=== PATIENT | female | born 1995 | race Caucasian/White ===

== ENCOUNTER 2020-07-09 18:06 | Emergency (ER) | payer MEDICAID ==
[2020-07-09 18:13] VITALS: BP 153/97; PULSE 100; RESP 18; TEMP 98.5
[2020-07-09] MEDS ORDERED: SODIUM CHLORIDE 0.9% 2,000 ML IV STA (18:45)
[2020-07-09] MEDS ORDERED: METOCLOPRAMIDE 5 MG/ML 2 ML VIAL IVP STA (18:45)
[2020-07-09] MEDS ORDERED: diphenhydrAMINE 50 MG/ML 1 ML VIAL IVP STA (18:45)
[2020-07-09 19:37] LABS: Basophils % (A) 0 %; Eosinophils # (A) 0.1 k/uL (0-0.7); Eosinophils % (A) 1 %; HGB 13.5 gm/dL (11.4-16.0); Lymphocytes # (A) 1.8 k/uL (1.0-4.8); Lymphocytes % (A) 16 %; MCH 30.6 pg (25.0-35.0); MCHC 35.5 g/dL (31.0-37.0); MCV 86.2 fL (80.0-100.0); Mean Platelet Volume 7.1; Monocytes # (A) 0.3 k/uL (0-1.0); Monocytes % (A) 3 %; Neutrophils # (A) 8.8 k/uL (1.3-7.7); Neutrophils % (A) 79 %; Platelet Count 260 k/uL (150-450); RBC 4.41 m/uL (3.80-5.40); RDW 12.1 % (11.5-15.5); WBC 11.1 k/uL (3.8-10.6)
[2020-07-09 19:40] LABS: Appearance,Urine Cloudy (Clear); Bacteria,Urine Few /hpf; Bilirubin,Urine Negative (Negative); Blood,Urine Small (Negative); Color,Urine Yellow; Glucose,Urine (UA) Negative (Negative); Hyaline Casts,Urine 1 /lpf (0-2); Ketones,Urine 4+ (Negative); Leukocyte Esterase,Urine Small (Negative); Mucus,Urine Moderate /hpf; Nitrite,Urine Negative (Negative); PH, Urine 5.5 (5.0-8.0); Protein,Urine Trace (Negative); RBC,Urine 1 /hpf (0-5); Specific Gravity,Urine 1.026 (1.001-1.035); Squamous Epithelial Cell,Urine 5 /hpf (0-4); WBC,Urine 4 /hpf (0-5)
--- NOTE | 2020-07-09 19:40 | ED ---
Nausea/Vomiting/Diarrhea HPI - General Chief complaint: Nausea/Vomiting/Diarrhea Stated complaint: 9 wks preg/vomiting Time Seen by Provider: 07/09/20 18:35 Source: patient, RN notes reviewed, old records reviewed Mode of arrival: ambulatory Limitations: no limitations - History of Present Illness Initial comments: 22-year-old female female with first at 9 weeks last menstrual period she presents today for nausea and vomiting for the past 3 weeks but significantly worse over the past 24 hours. She reports she is unable to tolerate fluids at this time. Patient states that she has not had any ultrasounds or testing on this . His complaint is some minor lower abdominal cramping. She denies any abnormal vaginal bleeding or discharge. - Related Data Previous Rx's Medication Instructions Recorded Cephalexin [Keflex] 500 mg PO Q8HR #12 cap 07/09/20 Metoclopramide [Reglan] 10 mg PO ACHS #15 tab 07/09/20 Allergies Allergy/AdvReac Type Severity Reaction Status Date / Time No Known Allergies Allergy Verified 11/08/19 10:09 Review of Systems ROS Statement: Those systems with pertinent positive or pertinent negative responses have been documented in the HPI. ROS Other: All systems not noted in ROS Statement are negative. Past Medical History Past Medical History: No Reported History History of Any Multi-Drug Resistant Organisms: None Reported Past Surgical History: No Surgical Hx Reported Past Psychological History: No Psychological Hx Reported Smoking Status: Never smoker Past Alcohol Use History: None Reported Past Drug Use History: None Reported General Exam - General Exam Comments Initial Comments: Pleasant 24 yearold female, no distress. Limitations: no limitations General appearance: alert, in no apparent distress Head exam: Present: atraumatic, normocephalic, normal inspection Eye exam: Present: normal appearance, PERRL, EOMI. Absent: scleral icterus, conjunctival injection, periorbital swelling ENT exam: Present: normal exam, mucous membranes moist Neck exam: Present: normal inspection. Absent: tenderness, meningismus, lymphadenopathy Respiratory exam: Present: normal lung sounds bilaterally. Absent: respiratory distress, wheezes, rales, rhonchi, stridor Cardiovascular Exam: Present: regular rate, normal rhythm, normal heart sounds. Absent: systolic murmur, diastolic murmur, rubs, gallop, clicks GI/Abdominal exam: Present: soft, normal bowel sounds. Absent: distended, tenderness, guarding, rebound, rigid Extremities exam: Present: normal inspection, full ROM, normal capillary refill. Absent: tenderness, pedal edema, joint swelling, calf tenderness Back exam: Present: normal inspection Neurological exam: Present: alert, oriented X3, CN II-XII intact Course Vital Signs 07/09/20 18:10 Temperature 98.5 F Pulse Rate 100 Respiratory 18 Rate Blood Pressure 153/97 O2 Sat by Pulse 100 Oximetry Medical Decision Making - Medical Decision Making 24 year old female, 9 weeks , . She has nausea and vomiting for the past 3 weeks, worse in 24 hours. Pt has ketones in urine, given 2L bolus. Pt has bacteruria, and will be placed on keflex. Pt has upcoming appt with Dr. Concepcion. Pt will be Discharged with reglan and discussedreturn parameters. - Lab Data Result diagrams: 07/09/20 19:28 07/09/20 19:28 Lab Results 07/09/20 07/09/20 07/09/20 Range/Units 19:28 19:28 19:28 WBC 11.1 H (3.8-10.6) k/uL RBC 4.41 (3.80-5.40) m/uL Hgb 13.5 (11.4-16.0) gm/dL Hct 38.0 (34.0-46.0) % MCV 86.2 (80.0-100.0) fL MCH 30.6 (25.0-35.0) pg MCHC 35.5 (31.0-37.0) g/dL RDW 12.1 (11.5-15.5) % Plt Count 260 (150-450) k/uL Neutrophils % 79 % Lymphocytes % 16 % Monocytes % 3 % Eosinophils % 1 % Basophils % 0 % Neutrophils # 8.8 H (1.3-7.7) k/uL Lymphocytes # 1.8 (1.0-4.8) k/uL Monocytes # 0.3 (0-1.0) k/uL Eosinophils # 0.1 (0-0.7) k/uL Basophils # 0.0 (0-0.2) k/uL Sodium 134 L (137-145) mmol/L Potassium 4.1 (3.5-5.1) mmol/L Chloride 105 (98-107) mmol/L Carbon Dioxide 19 L (22-30) mmol/L Anion Gap 10 mmol/L BUN 7 (7-17) mg/dL Creatinine 0.63 (0.52-1.04) mg/dL Est GFR (CKD-EPI)AfAm >90 (>60 ml/min/1.73 sqM) Est GFR (CKD-EPI)NonAf >90 (>60 ml/min/1.73 sqM) Glucose 86 (74-99) mg/dL Calcium 9.4 (8.4-10.2) mg/dL Total Bilirubin 0.6 (0.2-1.3) mg/dL AST 28 (14-36) U/L ALT 59 H (4-34) U/L Alkaline Phosphatase 62 (38-126) U/L Total Protein 7.2 (6.3-8.2) g/dL Albumin 4.3 (3.5-5.0) g/dL Urine Color Yellow Urine Appearance Cloudy H (Clear) Urine pH 5.5 (5.0-8.0) Ur Specific [place] 1.026 (1.001-1.035) Urine Protein Trace H (Negative) Urine Glucose (UA) Negative (Negative) Urine Ketones 4+ H (Negative) Urine Blood Small H (Negative) Urine Nitrite Negative (Negative) Urine Bilirubin Negative (Negative) Urine Urobilinogen 2.0 (<2.0) mg/dL Ur Leukocyte Esterase Small H (Negative) Urine RBC 1 (0-5) /hpf Urine WBC 4 (0-5) /hpf Ur Squamous Epith Cells 5 H (0-4) /hpf Urine Bacteria Few H (None) /hpf Hyaline Casts 1 (0-2) /lpf Urine Mucus Moderate H (None) /hpf - Radiology Data Radiology results: report reviewed Interpreted by me: US shows viable IUP measuring 9 weeks. Disposition Clinical Impression: Nausea & vomiting, 9 weeks gestation of , Asymptomatic bacteriuria Disposition: HOME SELF-CARE Condition: Good Instructions (If sedation given, give patient instructions): Nausea and Vomiting in (ED) Additional Instructions: advised follow-up with your CLINICAL TRIAL ASSOCIATE. Rest, increase fluid intake. Patient is to take medication as prescribed. Prescriptions: Cephalexin [Keflex] 500 mg PO Q8HR #12 cap Metoclopramide [Reglan] 10 mg PO ACHS #15 tab Is patient prescribed a controlled substance at d/c from ED?: No Referrals: Josefina Madrid MD [Primary Care Provider] - 1-2 days Time of Disposition: 20:41
[2020-07-09 19:46] LABS: ALT 59 U/L (4-34); AST 28 U/L (14-36); African American GFR (CKD) >90 (>60 ml/min/1.73 sqM); Albumin 4.3 g/dL (3.5-5.0); Alkaline Phosphatase 62 U/L (38-126); Anion Gap 10 mmol/L; Blood Urea Nitrogen 7 mg/dL (7-17); Calcium 9.4 mg/dL (8.4-10.2); Carbon Dioxide 19 mmol/L (22-30); Chloride 105 mmol/L (98-107); Glucose 86 mg/dL (74-99); Non-African American GFR(CKD) >90 (>60 ml/min/1.73 sqM); Potassium 4.1 mmol/L (3.5-5.1); Sodium 134 mmol/L (137-145); Total Bilirubin 0.6 mg/dL (0.2-1.3); Total Protein 7.2 g/dL (6.3-8.2)
--- NOTE | 2020-07-09 20:14 | US ---
EXAMINATION TYPE: Transabdominal DATE OF EXAM: 07/09/2020 7:59 PM COMPARISON: NONE CLINICAL HISTORY: confirm . Abdominal/pelvic pain x 3 weeks, vomiting. . EXAM PERFORMED: Transabdominal (TA) EXAM MEASUREMENTS: GESTATIONAL AGE / DATING Physician Established: Not yet established Dates by LMP: (8 weeks/5 days) EDC: 02/13/2021 Dates by First Scan: This is first scan Dates by Current Scan for: ( 9 weeks/0 days) EDC: 02/11/2021 MATERNAL ANATOMY Uterus: 9.8 x 6.9 x 5.8 cm. Anteverted. As mentioned below, hypoechoic area seen adjacent and to the left of the gestational sac measurin.9 x 1.1 x 1.8 cm. Right Ovary: 2.8 x 2.4 x 2.0 cm. Left Ovary: 2.8 x 1.9 x 1.8 cm. Post CDS / Adnexa: Appear to be wnl. Presence of free fluid: None seen. Presence of corpus luteal cyst: Not seen. Presence of subchorionic bleed: Probable; hypoechoic area seen adjacent and to the left of the gestat ional sac measurin.9 x 1.1 x 1.8 cm. GESTATION / SURVEY CRL: 2.32 cm (9 weeks/0 days) Yolk Sac (normal less than 6mm): Not visualized. Heart Rate: 167 bpm. movement throughout exam, slightly limited. Rhythm: Measures upper limits of normal. IUP: Viable IUP Date of LMP: 05/09/2020 Beta HcG (if available): Not available IMPRESSION: The ultrasound gestational age is 19 weeks. The ROGELIO is 02/11/2021. No complicating process seen.
== END 2020-07-09 21:05 | disposition home or self-care (01) ==
LOC: EC 18:06
DX: O21.9 Vomiting of pregnancy, unspecified (principal); O23.91 Unspecified genitourinary tract infection in pregnancy, first trimester; Z3A.09 9 weeks gestation of pregnancy
CPT/HCPCS: 36415; 80053; 85025; 81001; 76801; 99284; 96374; 96375; 96361 ×2; J1200; J2765

== ENCOUNTER → 2020-08-05 | Outpatient (CLI) | payer SELFPAY ==
[2020-08-05 09:08] LABS: HCT 36.1 % (34.0-46.0); HGB 12.7 gm/dL (11.4-16.0); MCH 30.6 pg (25.0-35.0); MCHC 35.2 g/dL (31.0-37.0); Mean Platelet Volume 7.4; Platelet Count 265 k/uL (150-450); RBC 4.15 m/uL (3.80-5.40); RDW 12.8 % (11.5-15.5); WBC 9.7 k/uL (3.8-10.6)
[2020-08-05 15:20] LABS: African American GFR (CKD) 121.3 (60.0-200.0); Non-African American GFR(CKD) 104.6 (60.0-200.0)
[2020-08-05 15:28] LABS: T4, Free (Free Thyroxine) 1.1 ng/dL (0.80-1.80)
[2020-08-05 15:29] LABS: Hepatitis B Surface Antigen Non-Reactive (Non-Reactive)
[2020-08-05 18:15] LABS: HIV 2 AB Non-Reactive (Non-Reactive); HIV AB P24 Non-Reactive (Non-Reactive); HIV P24 AG Non-Reactive (Non-Reactive)
== END | disposition home or self-care (01) ==
LOC: LABWHC1 08:44
PROVIDERS: ATTEND Obstetrics & Gynecology
DX: Z34.01 Encounter for supervision of normal first pregnancy, first trimester (principal); E03.9 Hypothyroidism, unspecified
CPT/HCPCS: 36415; 82565; 82947; 84439; 84443; 85027; 86592; 86762; 86850; 86900; 86901; 87340; 87390

== ENCOUNTER → 2020-09-01 | Outpatient (CLI) | payer MEDICAID ==
[2020-09-02 10:41] LABS: Alpha Fetoprotein 25.5 ng/mL; Alpha Fetoprotein (M.O.M) 0.84; B-HCG (M.O.M.) 0.64; Gestational Age (days) 3; Human Chorionic Gonadotropin 18.1 IU/mL; Inhibin A (M.O.M.) 0.51; Interpretation SeeBelow; Maternal Age at EDD (Yrs) 23; Smoker No; Unconjugated Estriol (M.O.M.) 1.61
== END | disposition home or self-care (01) ==
LOC: LABWHC1 14:09
PROVIDERS: ATTEND Obstetrics & Gynecology
DX: Z34.02 Encounter for supervision of normal first pregnancy, second trimester (principal); Z3A.00 Weeks of gestation of pregnancy not specified
CPT/HCPCS: 36415; 82105; 82677; 84702; 86336

== ENCOUNTER → 2020-09-15 | Outpatient (CLI) | payer MEDICAID ==
--- NOTE | 2020-09-15 10:23 | US ---
EXAMINATION TYPE: US OB anatomy transabd DATE OF EXAM: 09/15/2020 COMPARISON: NONE HISTORY: O36.62X0 Maternal care for excessive growth TECHNIQUE: Transabdominal (TA) EXAM MEASUREMENTS: GESTATIONAL AGE / DATING Physician Established: (18 weeks/6 days) EDC: 02/10/21 Dates by LMP: ( 18 weeks/3 days) EDC: 02/13/21 Dates by First Scan: (18 weeks/5 days) EDC: 02/11/21 Dates by Current Scan for: (18 weeks/5 days) EDC: 02/11/21 SURVEY IUP: Single PLACENTA: Anterior PREVIA: No previa SALBADOR: 10.72 cm CERVICAL LENGTH (transabdominal: norm > 3.0cm): 3.5 cm BIOMETRY PRESENTATION: Vertex BPD: 4.3 cm 19 weeks / 0 days HC: 1.2 cm 18 weeks / 4 days AC: 13.2 cm 18 weeks / 4 days FL: 2.9 cm 18 weeks / 6 days ESTIMATED WEIGHT IN GRAMS: 256 grams ESTIMATED WEIGHT IN LBS/OZ: 0 lbs. 9 oz. WEIGHT PERCENTAGE BASED ON ESTABLISHED DATE: 40 % HC/AC: 1.2 FL/AC: 22.0 HEART RATE: 146 bpm RHYTHM: Normal ANATOMY SEEN (within normal limits): * Lateral Vent (< 1 cm) 0.7 cm * Cisterna Magna (< 1.1 cm) 0.3 cm * Nuchal Fold (< 0.6 cm) 0.2 cm * Cerebellum (varies with age) 1.4 cm Choroid Plexus (bilateral) Midline Falx Cavus Septi Pellucidi Four Chamber Heart Outflow tracts: LVOT/RVOT Stomach Situs Nose / Lips Diaphragm Kidneys (bilateral) Bladder Cord Insert Three Vessel Cord Longitudinal Spine Transverse Spine Arms (bilateral) Legs (bilateral) IMPRESSION: Single viable intrauterine .
== END | disposition home or self-care (01) ==
LOC: RADUSWWP 08:57
PROVIDERS: ATTEND Obstetrics & Gynecology
DX: O36.62X0 Maternal care for excessive fetal growth, second trimester, not applicable or unspecified (principal); Z3A.18 18 weeks gestation of pregnancy
CPT/HCPCS: 76811

== ENCOUNTER → 2020-11-14 | Outpatient (CLI) | payer MEDICAID ==
[2020-11-14 15:11] LABS: HCT 34.7 % (37.2-46.3); HGB 11.3 g/dL (12.0-15.0); MCH 30.5 pg (27.0-32.0); MCHC 32.6 g/dL (32.0-37.0); MCV 93.8 fL (80.0-97.0); Mean Platelet Volume 10.4 fL (9.5-12.2); Platelet Count 303 X 10*3/uL (140-440); RDW 12.7 % (11.5-14.5); WBC 12.38 X 10*3/uL (4.50-10.00)
== END | disposition home or self-care (01) ==
LOC: LABWHC1 08:02
PROVIDERS: ATTEND Obstetrics & Gynecology
DX: Z34.02 Encounter for supervision of normal first pregnancy, second trimester (principal)
CPT/HCPCS: 36415; 82950; 85027

== ENCOUNTER → 2020-12-01 | Outpatient (CLI) | payer MEDICAID ==
[2020-12-01 12:42] LABS: Glucose 3 Hour, Gest 106 mg/dL
== END | disposition home or self-care (01) ==
LOC: LABWHC1 07:47
PROVIDERS: ATTEND Obstetrics & Gynecology
DX: O99.810 Abnormal glucose complicating pregnancy (principal)
CPT/HCPCS: 36415; 82951; 82952

== ENCOUNTER → 2021-01-15 | Outpatient (CLI) | payer MEDICAID ==
--- NOTE | 2021-01-16 09:14 | US ---
EXAMINATION TYPE: US OB >= 14 wk fetus DATE OF EXAM: 01/15/2021 COMPARISON: Correlation to dates found on 09/15/2020 CLINICAL HISTORY: 25-year-old female 036.63XO Large for dates 3rd trimester. Growth TECHNIQUE: Transabdominal (TA) GESTATIONAL AGE / DATING Physician Established: (36 weeks/2 days) EDC: 02/10/2021 Dates by Current Scan: (35 weeks/4 days) (4 days less growth than expected compared to 09/15/2020) EDC: 02/15/2021 Beta HCG (if available): Not available at this time SURVEY IUP: Single PLACENTA: Anterior PREVIA: No Previa SALBADOR: 13.1 cm Normal CERVICAL LENGTH (transabdominal: norm > 3.0cm): 3.2 cm BIOMETRY PRESENTATION: Vertex BPD: 8.6 cm 34 weeks / 5 days HC: 32.1 cm 36 weeks / 2 days AC: 32.3 cm 36 weeks / 2 days FL: 6.7 cm 34 weeks / 4 days ESTIMATED WEIGHT IN GRAMS: 2719 grams ESTIMATED WEIGHT IN LBS/OZ: 6 lbs. 0 oz. WEIGHT PERCENTAGE BASED ON ESTABLISHED DATES: 33% (versus 40%, previously) HC/AC: 0.99 Normal FL/AC: 21% Normal HEART RATE: 144 bpm RHYTHM: Normal Pumping Supervisor notes: Single live IUP measuring 35 weeks 4 days. IMPRESSION: 1. Single live intrauterine with established gestational age of 36 weeks 2 days. Current ul trasound biometry is concordant (35 weeks 4 days) with appropriate interval growth as compared to (4 days less growth than expected compared to prior). 2. EFW at 33% versus 40% previously.
== END | disposition home or self-care (01) ==
LOC: RADUSWWP 16:07
PROVIDERS: ATTEND Obstetrics & Gynecology
DX: O36.63X0 Maternal care for excessive fetal growth, third trimester, not applicable or unspecified (principal); Z3A.36 36 weeks gestation of pregnancy
CPT/HCPCS: 76805

== ENCOUNTER 2021-02-10 06:15 | Inpatient (IN) | payer MEDICAID ==
--- NOTE | 2021-02-09 20:23 | P.HPOB ---
History of Present Illness H&P Date: 02/09/21 Chief Complaint: Induction of labor This is a 25 y.o. female, 1, para 0, with an estimated date of confinement of 02/13/2021, estimated gestational age of 39-4/7 weeks, who presents for induction of labor. She admits to good movement and irregular contractions. course has been essentially uncomplicated. labs: GC/Chlamydia-neg Hepatitis B surface antigen-neg Rubella-immune HIV-NR Random glucose-86 Hemoglobin-12.7 Blood type-A+ Antibody screen-neg Quad-neg 1 hr. GTT-137 3 hr. 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 Nurse AidAba peters Review of Systems Constitutional: Denies chills, Denies fever Eyes: denies blurred vision, denies pain Ears, nose, mouth and throat: Denies headache, Denies sore throat Cardiovascular: Denies chest pain, Denies shortness of breath Respiratory: Denies cough Gastrointestinal: Reports abdominal pain (irregular contractions) Genitourinary: Reports pelvic pain, Reports Musculoskeletal: Reports low back pain Integumentary: Denies pruritus, Denies rash Neurological: Denies numbness, Denies weakness Psychiatric: Denies anxiety, Denies depression Past Medical History Past Medical History: No Reported History History of Any Multi-Drug Resistant Organisms: None Reported Past Surgical History: No Surgical Hx Reported Past Psychological History: No Psychological Hx Reported Smoking Status: Never smoker Past Alcohol Use History: None Reported Past Drug Use History: None Reported Medications and Allergies Home Medications Medication Instructions Recorded Confirmed Type Levothyroxine Sodium 25 mcg PO 02/09/21 History Ktt176/Iron/FA/O3/Dha/Epa/Fish 02/09/21 History [ Multi-Dha Softgel] Allergies Allergy/AdvReac Type Severity Reaction Status Date / Time No Known Allergies Allergy Verified 11/08/19 10:09 Exam Osteopathic Statement: *. No significant issues noted on an osteopathic structural exam other than those noted in the History and Physical/Consult. HEENT: within normal limits Heart: regular rate and rhythm Lungs: clear to auscultation bilaterally Abdomen: soft, non-tender Extremities: neg. Kamini's Cervix: 1.5/70%/-1 Assessment and Plan (1) 39 weeks gestation of Status: Acute Code(s): Z3A.39 - 39 WEEKS GESTATION OF SNOMED Code(s): 25262734 Plan: Admit for oxytocin induction of labor. Expectant management. Epidural anesthesia if desired.
[2021-02-10] MEDS ORDERED: TERBUTALINE 1 MG/ML VIAL SQ PRN (06:51)
[2021-02-10] MEDS ORDERED: METHYLERGONOVINE 0.2 MG/ML 1 ML AMP IM PRN (06:51)
[2021-02-10] MEDS ORDERED: LIDOCAINE 1% (10MG/ML) FOR IV START INTRADERMA PRN (06:51)
[2021-02-10] MEDS ORDERED: CARBOPROST TROMETHAMINE 250 MCG/ML 1 ML AMP IM PRN (06:51)
[2021-02-10] MEDS ORDERED: OXYTOCIN 30 UNITS/500 ML NS 30 UNIT in SALINE 1 500ML.BAG IV SCH ×2 (06:51→20:57)
[2021-02-10] MEDS ORDERED: OXYTOCIN 10 UNIT/ML 1 ML VIAL IM PRN (06:51)
[2021-02-10] MEDS ORDERED: LIDOCAINE 0.5% (PF) 5 MG/ML (50 ML SDV) SQ PRN (06:51)
[2021-02-10] MEDS: LACTATED RINGERS 1,000 ML IV SCH ×3 (06:58→17:30)
[2021-02-10 07:07] LABS: Basophils % (A) 0 %; Eosinophils # (A) 0.2 k/uL (0-0.7); Eosinophils % (A) 2 %; HCT 34.2 % (34.0-46.0); HGB 11.8 gm/dL (11.4-16.0); Lymphocytes # (A) 1.9 k/uL (1.0-4.8); Lymphocytes % (A) 18 %; MCH 29.8 pg (25.0-35.0); MCHC 34.5 g/dL (31.0-37.0); MCV 86.5 fL (80.0-100.0); Mean Platelet Volume 7.9; Monocytes # (A) 0.5 k/uL (0-1.0); Monocytes % (A) 5 %; Neutrophils # (A) 7.8 k/uL (1.3-7.7); Neutrophils % (A) 75 %; Platelet Count 301 k/uL (150-450); RBC 3.95 m/uL (3.80-5.40); RDW 13.2 % (11.5-15.5); WBC 10.4 k/uL (3.8-10.6)
[2021-02-10] MEDS ORDERED: BUTORPHANOL 1 MG/ML 1 ML VIAL IV PRN (08:45)
[2021-02-10] MEDS ORDERED: SODIUM CHLORIDE 0.9% 100 ML BAG ONE (13:38)
[2021-02-10] MEDS ORDERED: ROPIVACAINE 5MG/ML 20ML VIAL ONE (13:38)
[2021-02-10] MEDS ORDERED: fentaNYL (PF) 50 MCG/ML 5 ML AMP ONE (13:38)
--- NOTE | 2021-02-10 20:55 | P.PROBDLV ---
Vaginal Delivery Note - . Vaginal Delivery Note: The patient progressed to complete dilation after oxytocin induction of labor and artificial rupture of membranes with clear fluid noted. She did receive epidural anesthesia. Once reaching complete, she began pushing. Infant's head came to a crown. With one further push, the infant's head delivered across the perineum in a right occiput anterior lie. Nose and mouth were bulb suctioned. The head then turned in a clockwise fashion and the right shoulder or anterior shoulder delivered. With one remaining push, the remainder the easily delivered and was placed on mother's abdomen. A body cord times one was removed around the infant with delivery. Terminal meconium was noted. A viable female infant was noted with scores of 7 at 1 minute and 8 at 5 minutes and infant weight of 6 lbs. 11 oz. Placenta delivered shortly thereafter, intact, with a three-vessel cord. Uterus contracted fairly well after oxytocin was given and uterine massage was carried out. Inspection of the perineum revealed a small first-degree perineal laceration. This area was anesthetized with 1% lidocaine and then sutured with 3-0 Vicryl suture in a running locked fashion. A gloved hand was placed within the uterine cavity and some clots were removed. No further placental tissue was noted. Uterus was noted to be firm. Estimated blood loss is approximately 200 mL's. Both mother and are in stable condition.
[2021-02-10] MEDS ORDERED: HYDROCORTISONE 2.5% RECTAL CREAM 30 GM TUBE RECTAL PRN (20:57)
[2021-02-10] MEDS ORDERED: diphenhydrAMINE 25 MG CAP PO PRN (20:57)
[2021-02-10] MEDS ORDERED: SIMETHICONE 80 MG CHEWABLE PO PRN (20:57)
[2021-02-10] MEDS ORDERED: BENZOCAINE/MENTHOL SPRAY 1 GM/SPRAY AEROSOL TOPICAL PRN (20:57)
[2021-02-10] MEDS ORDERED: LANOLIN CREAM 5 GM TUBE TOPICAL PRN (20:57)
[2021-02-10] MEDS ORDERED: diphenhydrAMINE 50 MG/ML 1 ML VIAL IVP PRN ×2 (20:57)
[2021-02-10] MEDS ORDERED: diphenhydrAMINE 50 MG CAP PO PRN (20:57)
[2021-02-10] MEDS ORDERED: ZOLPIDEM 5 MG TAB PO PRN (20:57)
[2021-02-10] MEDS: IBUPROFEN 600 MG TAB PO SCH (21:18)
[2021-02-10] MEDS: SENNOSIDES-DOCUSATE SODIUM 1 EACH TAB PO SCH (21:25)
[2021-02-10] MEDS: LEVOTHYROXINE 25 MCG TAB PO SCH (23:54)
[2021-02-10] MEDS: PRENATAL VIT-IRON-FOLIC ACID 1 EACH CAP PO SCH (23:56)
[2021-02-11] MEDS: ACETAMINOPHEN TAB 325 MG TAB PO PRN ×2 (02:09→07:54)
[2021-02-11] MEDS: LEVOTHYROXINE 25 MCG TAB PO SCH (04:02)
[2021-02-11] MEDS: IBUPROFEN 600 MG TAB PO SCH ×4 (04:08→19:51)
[2021-02-11 07:05] LABS: Basophils % (A) 0 %; Eosinophils # (A) 0.1 k/uL (0-0.7); Eosinophils % (A) 1 %; HCT 29.4 % (34.0-46.0); HGB 10.2 gm/dL (11.4-16.0); Lymphocytes # (A) 1.7 k/uL (1.0-4.8); Lymphocytes % (A) 12 %; MCH 30.4 pg (25.0-35.0); MCHC 34.8 g/dL (31.0-37.0); MCV 87.4 fL (80.0-100.0); Mean Platelet Volume 8.1; Monocytes # (A) 0.6 k/uL (0-1.0); Monocytes % (A) 4 %; Neutrophils # (A) 12.3 k/uL (1.3-7.7); Neutrophils % (A) 83 %; Platelet Count 276 k/uL (150-450); RBC 3.37 m/uL (3.80-5.40); RDW 13.2 % (11.5-15.5); WBC 14.8 k/uL (3.8-10.6)
[2021-02-11] MEDS: SENNOSIDES-DOCUSATE SODIUM 1 EACH TAB PO SCH ×2 (07:53→19:53)
[2021-02-11] MEDS: PRENATAL VIT-IRON-FOLIC ACID 1 EACH CAP PO SCH (07:54)
--- NOTE | 2021-02-11 08:44 | P.PNOBGVD ---
Subjective - Subjective Principal diagnosis: Status post vaginal delivery day #1 Interval history: Patient is doing well. She is breast-feeding. Lochia is decreasing. Pain is well-controlled with ibuprofen and Tylenol. Patient reports: Reports appetite normal, Reports voiding normally, Reports pain well controlled, Reports ambulating normally Lavinia: doing well, nursing well Objective - Latest Vital Signs Latest vital signs: Vital Signs Temp Pulse Resp BP Pulse Ox 02/11/21 04:00 98.4 F 112 H 16 107/55 98 02/10/21 23:50 96.2 F L 134 H 16 129/74 02/10/21 22:45 100 16 119/60 100 02/10/21 22:15 104 H 16 111/60 02/10/21 21:45 106 H 16 119/73 02/10/21 21:30 110 H 16 119/70 02/10/21 21:15 121 H 16 124/60 02/10/21 21:00 115 H 16 128/64 02/10/21 20:45 97.5 F L 116 H 16 138/73 02/10/21 09:14 96.0 F L 95 16 132/87 97 Intake and Output 02/10/21 02/11/21 02/11/21 22:59 06:59 14:59 Intake Total 161.433 Output Total 400 Balance -238.567 Intake: Intake, IV Titration 161.433 Amount Oxytocin 30 Units/500 ml 161.433 Ns 30 unit In Saline 1 500ml.bag @ Per Protocol IV .Q0M DIANN Rx#:[id number] Output: Estimated Blood Loss 400 Other: # Voids 2 - Exam Lungs: bilateral: normal Chest: Normal S1, Normal S2 Extremities: Present: normal Abdomen: Present: normal appearance, soft. Absent: distention, tenderness Uterus: Present: normal, firm. Absent: tenderness - Labs Labs: Abnormal Lab Results - Last 24 Hours (Table) 02/11/21 Range/Units 06:42 WBC 14.8 H (3.8-10.6) k/uL RBC 3.37 L (3.80-5.40) m/uL Hgb 10.2 L (11.4-16.0) gm/dL Hct 29.4 L (34.0-46.0) % Neutrophils # 12.3 H (1.3-7.7) k/uL Assessment and Plan Assessment: Status post vaginal delivery day #1 (1) 39 weeks gestation of Current Visit: No Status: Acute Code(s): Z3A.39 - 39 WEEKS GESTATION OF SNOMED Code(s): 26071886 Plan: Continue with care today. Will work on breast-feeding. Anticipate discharge home tomorrow.
[2021-02-12 08:18] VITALS: RESP 15
[2021-02-12] MEDS: LEVOTHYROXINE 25 MCG TAB PO SCH (08:18)
[2021-02-12] MEDS: SENNOSIDES-DOCUSATE SODIUM 1 EACH TAB PO SCH (08:19)
--- NOTE | 2021-02-12 12:33 | P.DS ---
Providers Date of admission: 02/10/21 06:34 Expected date of discharge: 02/12/21 Attending physician: Negar Concepcion Primary care physician: Stated None - Discharge Diagnosis(es) (1) 39 weeks gestation of Current Visit: No Status: Acute Hospital Course: This is a 25-year-old female 1 para 0 at 39-3/7 weeks who presented for induction of labor. She delivered vaginally a viable female infant on 02/10/2021 with scores of 7 at 1 minute and 8 at 5 minutes and infant weight of 6 lbs. 11 oz. Her course has been uncomplicated. Lochia has been decreasing. Her pain is well-controlled. Vital signs are stable. She is breast feeding. Abdomen is soft with fundus firm and nontender. Extremities show negative Homans. Impression is status post vaginal delivery day #1. Plan is to discharge home today. Routine instructions are given. She is advised follow-up in the office in 6 weeks for a check. She will be given a prescription for ibuprofen and a breast pump. She is advised to call the office if she has any further questions or concerns prior to her appointment time. Procedures: Oxytocin induction of labor Spontaneous vaginal delivery of a viable female on 02/10/2021 Patient Condition at Discharge: Stable Plan - Discharge Summary New Discharge Prescriptions: New Ibuprofen [Motrin] 600 mg PO Q6H #60 tab Continue Levothyroxine Sodium 25 mcg PO DAILY Elq752/Iron/FA/O3/Dha/Epa/Fish [ Multi-Dha Softgel] 1 tab PO DAILY Discharge Medication List Levothyroxine Sodium 25 mcg PO DAILY 02/09/21 [History] Mih075/Iron/FA/O3/Dha/Epa/Fish [ Multi-Dha Softgel] 1 tab PO DAILY 02/09/21 [History] Ibuprofen [Motrin] 600 mg PO Q6H #60 tab 02/12/21 [Rx] Follow up Appointment(s)/Referral(s): Negar Concepcion DO [Doctor of Osteopathic Medicine] - 6 Weeks Patient Instructions/Handouts: Vaginal Delivery (DC) Activity/Diet/Wound Care/Special Instructions: Instructions 1. Do not begin any exercise program for 3 weeks. 2. Do not resume sexual relations for 3 weeks or longer if uncomfortable. 3. You may take tub baths or showers at any time. 4. You may use tampons if desired after 3 weeks. 5. Keep the area of episiotomy (stitches) clean and dry. 6. If you are not nursing, wear a good fitting, supportive bra during the day and limit fluid intake for at least 1 week to prevent breast engorgement. 7. Call the office, [phone], within the next week to make appointment for your 6 week checkup if it has not already been made. 8. Report any of the following occurrences to the doctor promptly: a. Heavy, excessive bleeding b. Chills, fever c. Burning or frequency of urination d. Pain or redness and breasts if nursing e. Increasing pain or swelling in episiotomy (stitches). In addition to the above instructions, the following additional should be followed: 1. No heavy lifting or straining (exercising) until after 6 week checkup. 2. Keep abdominal incision clean and dry: You may wear a dressing if more comfortable. 3. Make office appointment for 10 days after going home or as instructed by her doctor. Discharge Disposition: HOME SELF-CARE
[2021-02-12 13:29] VITALS: BP 123/67; PULSE 103; TEMP 98.2
== END 2021-02-12 15:25 | disposition home or self-care (01) | DRG 807 ==
LOC: 4FBP 06:34
PROVIDERS: ADMIT Obstetrics & Gynecology; ATTEND Obstetrics & Gynecology
PROC: 10E0XZZ Delivery of Products of Conception, External Approach (ICD-10-PCS; principal; 2021-02-10)
PROC: 0HQ9XZZ Repair Perineum Skin, External Approach (ICD-10-PCS; 2021-02-10)
DX: O77.0 Labor and delivery complicated by meconium in amniotic fluid (principal); Z37.0 Single live birth; O70.0 First degree perineal laceration during delivery; Z3A.39 39 weeks gestation of pregnancy
CPT/HCPCS: 85025; 86850; 86900; 86901

== ENCOUNTER 2023-01-21 03:11 | Emergency (ER) | payer MEDICAID, BC ==
[2023-01-21] MEDS ORDERED: ACETAMINOPHEN TAB 500 MG TAB PO STA (04:28)
[2023-01-21 05:18] LABS: Basophils % (A) 0 %; Eosinophils # (A) 0.2 k/uL (0-0.7); Eosinophils % (A) 2 %; HCT 36.2 % (34.0-46.0); HGB 12.5 gm/dL (11.4-16.0); Lymphocytes # (A) 2.3 k/uL (1.0-4.8); Lymphocytes % (A) 24 %; MCH 28.9 pg (25.0-35.0); MCHC 34.5 g/dL (31.0-37.0); MCV 83.9 fL (80.0-100.0); Mean Platelet Volume 7.3; Monocytes # (A) 0.3 k/uL (0-1.0); Monocytes % (A) 4 %; Neutrophils # (A) 6.4 k/uL (1.3-7.7); Neutrophils % (A) 68 %; Platelet Count 257 k/uL (150-450); RBC 4.31 m/uL (3.80-5.40); RDW 12.6 % (11.5-15.5); WBC 9.4 k/uL (3.8-10.6)
[2023-01-21 05:28] LABS: ALT 34 U/L (4-34); AST 32 U/L (14-36); African American GFR (CKD) >90 (>60 ml/min/1.73 sqM); Albumin 4.3 g/dL (3.5-5.0); Alkaline Phosphatase 53 U/L (38-126); Anion Gap 11 mmol/L; Blood Urea Nitrogen 12 mg/dL (7-17); Calcium 8.8 mg/dL (8.4-10.2); Carbon Dioxide 21 mmol/L (22-30); Chloride 103 mmol/L (98-107); Glucose 107 mg/dL (74-99); Non-African American GFR(CKD) >90 (>60 ml/min/1.73 sqM); Sodium 135 mmol/L (137-145); Total Bilirubin 0.4 mg/dL (0.2-1.3)
[2023-01-21 05:45] LABS: HCG,Quantitative Serum 3227.5 mIU/mL
--- NOTE | 2023-01-21 06:11 | US ---
EXAMINATION TYPE: Transabdominal DATE OF EXAM: 01/21/2023 5:50 AM COMPARISON: NONE CLINICAL INDICATION: Female, 27 years old with history of bleeding, 9 weeks ; Pt states she h ad an US done on Tuesday and there was a single live IUP measuring around 9 weeks. Spotting started sa day. Now she is bleeding more heavily with clots. EXAM PERFORMED: Transabdominal (TA) EXAM MEASUREMENTS: GESTATIONAL AGE / DATING Physician Established: (9 weeks/3 days) EDC: 08/23/23 Dates by LMP: LMP unknown Dates by First Scan: No previous this is first scan Dates by Current Scan for: No IUP seen at this time MATERNAL ANATOMY Uterus: 8.7 x 5.7 x 5.6cm Right Ovary: 2.5 x 3.0 x 2.0cm Left Ovary: 3.1 x 2.7 x 2.1cm Post CDS / Adnexa: Bowel gas Presence of free fluid: Yes in cul de sac Presence of corpus luteal cyst: Yes in left ovary measuring 1.6 x 1.5 x 1.5cm Presence of subchorionic bleed: No GESTATION / SURVEY CRL: Not seen MSD: Not seen IUP: No IUP seen at this time Date of LMP: unknown Beta HcG (if available): 3227 Anteverted uterus. Endometrial stripe measures approximate 13 mm thickness. No gestational sac, yolk sac, or pole identified. Tiny amount of free fluid in pelvic cul-de-sac towards end of study. Both ovaries are seen. No suspicious extra ovarian adnexal mass. There is a 1.5 cm corpus luteal cyst left ovary suspected. IMPRESSION: Based on patient's history findings are consistent with intrauterine demise given t he presence of live IUP several days earlier.
--- NOTE | 2023-01-21 07:11 | ED ---
Female Urogenital HPI - General Chief complaint: Vaginal Bleeding Stated complaint: Possible Miscarriage Time Seen by Provider: 01/21/23 03:27 Source: patient Mode of arrival: ambulatory - History of Present Illness Initial comments: 27-year-old female who is currently 9 weeks presents to emergency room with vaginal bleeding. She normally follows with Dr. Concepcion. States that she has appointment coming up on for her first visit. She had an outpatient ultrasound performed because she did not want to wait that long. States that on Tuesday she had an ultrasound which demonstrated an intrauterine with heart tones. Today the patient began having some bleeding. States that it started out light however has gotten significantly heavier over the course of the day. She is passing heavy clots. Has been saturating 1 pad an hour. Denies lightheadedness, dizziness or shortness of breath. No vaginal discharge or concern for infections. No urinary complaints. No other alleviating, precipitating or modifying factors - Related Data Home Medications Medication Instructions Recorded Confirmed Levothyroxine Sodium 25 mcg PO DAILY 02/09/21 02/10/21 Icn288/Iron/FA/O3/Dha/Epa/Fish 1 tab PO DAILY 02/09/21 02/10/21 [ Multi-Dha Softgel] Previous Rx's Medication Instructions Recorded Ibuprofen [Motrin] 600 mg PO Q6H #60 tab 02/12/21 Allergies Allergy/AdvReac Type Severity Reaction Status Date / Time No Known Allergies Allergy Verified 11/08/19 10:09 Review of Systems ROS Statement: Those systems with pertinent positive or pertinent negative responses have been documented in the HPI. ROS Other: All systems not noted in ROS Statement are negative. Past Medical History Past Medical History: No Reported History Additional Past Medical History / Comment(s): chiari malformation reduction 2015 History of Any Multi-Drug Resistant Organisms: None Reported Past Surgical History: Tonsillectomy Additional Past Surgical History / Comment(s): chiari malformation, tonsillectomy, wisdom teeth Additional Past Anesthesia/Blood Transfusion Reaction / Comment(s): no blood transfusiion hx, denies anesthesia issues for self or family. Past Psychological History: No Psychological Hx Reported Smoking Status: Never smoker Past Alcohol Use History: None Reported Past Drug Use History: None Reported - Past Family History Mother Family Medical History: Diabetes Mellitus, Hypertension General Exam General appearance: alert, in no apparent distress Head exam: Present: atraumatic, normocephalic, normal inspection Eye exam: Present: normal appearance, PERRL, EOMI. Absent: scleral icterus, conjunctival injection, periorbital swelling ENT exam: Present: normal exam, mucous membranes moist Neck exam: Present: normal inspection. Absent: tenderness, meningismus, lymphadenopathy Respiratory exam: Present: normal lung sounds bilaterally. Absent: respiratory distress, wheezes, rales, rhonchi, stridor Cardiovascular Exam: Present: normal rhythm, tachycardia, normal heart sounds. Absent: systolic murmur, diastolic murmur, rubs, gallop, clicks GI/Abdominal exam: Present: soft, normal bowel sounds. Absent: distended, tenderness, guarding, rebound, rigid Extremities exam: Present: normal inspection, full ROM, normal capillary refill. Absent: tenderness, pedal edema, joint swelling, calf tenderness Back exam: Present: normal inspection Neurological exam: Present: alert, oriented X3, CN II-XII intact Psychiatric exam: Present: normal affect, normal mood Skin exam: Present: warm, dry, intact, normal color. Absent: rash Course Vital Signs 01/21/23 01/21/23 03:12 07:15 Temperature 98.0 F 98.2 F Pulse Rate 113 H 97 Respiratory 16 18 Rate Blood Pressure 156/115 114/79 O2 Sat by Pulse 100 98 Oximetry Medical Decision Making - Medical Decision Making Was pt. sent in by a medical professional or institution (, PA, COMMERCIAL LOAN ADMINISTRATOR, urgent care, hospital, or intermediate...) When possible be specific @ -No Did you speak to anyone other than the patient for history (EMS, parent, family, police, friend...)? What history was obtained from this source @ -No Did you review nursing and triage notes (agree or disagree)? Why? @ -I reviewed and agree with nursing and triage notes Were old charts reviewed (outside hosp., previous admission, EMS record, old EKG, old radiological studies, urgent care reports/EKG's, intermediate records)? Report findings @ -No old charts were reviewed Differential Diagnosis (chest pain, altered mental status, abdominal pain women, abdominal pain men, vaginal bleeding, weakness, fever, dyspnea, syncope, headache, dizziness, GI bleed, back pain, seizure, CVA, palpatations, mental health, musculoskeletal)? @ -miscarriage, abnormal uterine bleeding, subchorionic hemorrhage EKG interpreted by me (3pts min.). @ -No X-rays interpreted by me (1pt min.). @ -None done CT interpreted by me (1pt min.). @ -None done U/S interpreted by me (1pt. min.). @ -yes What testing was considered but not performed or refused? (CT, X-rays, U/S, labs)? Why? @ -None What meds were considered but not given or refused? Why? @ -None Did you discuss the management of the patient with other professionals (professionals i.e. DrSylvie, PA, COMMERCIAL LOAN ADMINISTRATOR, lab, RT, psych nurse, vp digital marketing social media and crm, vascular technician, teacher, fourth officer, case packer and sealer)? Give summary @ -No Was smoking cessation discussed for >3mins.? @ -No Was critical care preformed (if so, how long)? @ -No Were there social determinants of health that impacted care today? How? (Homelessness, low income, unemployed, alcoholism, drug addiction, transportation, low edu. Level, literacy, decrease access to med. care, nursing home, rehab)? @ -No Was there de-escalation of care discussed even if they declined (Discuss DNR or withdrawal of care, Hospice)? DNR status @ -No What co-morbidities impacted this encounter? (DM, HTN, Smoking, COPD, CAD, Cancer, CVA, ARF, Chemo, Hep., AIDS, mental health diagnosis, sleep apnea, morbid obesity)? @ -None Was patient admitted / discharged? Hospital course, mention meds given and route, prescriptions, significant lab abnormalities, going to OR and other pertinent info. @ -Upon arrival patient is placed into room 30. history and physical exam was performed. Laboratory studies are conducted. Patient does have a positive blood type. Ultrasound was performed which demonstrates no intrauterine . As the patient does report to previous intrauterine with heart tones this is consistent with demise. Patient will have to follow up with her [employer] for which she does have an appointment on . Recommend laboratory studies and possible repeat ultrasound. Will need to follow her hormone level down to 0. Patient understood this. If she has any worsening pain or heavy bleeding she needs to return to the emergency room. Patient was agreeable to this and she was discharged home in stable condition Undiagnosed new problem with uncertain prognosis? @ -Yes Drug Therapy requiring intensive monitoring for toxicity (Heparin, Nitro, Insulin, Cardizem)? @ -No Were any procedures done? @ -No Diagnosis/symptom? @ -acute miscarriage Acute, or Chronic, or Acute on Chronic? @ -acute Uncomplicated (without systemic symptoms) or Complicated (systemic symptoms)? @ -complicated Side effects of treatment? @ -No Exacerbation, Progression, or Severe Exacerbation? @ -No Poses a threat to life or bodily function? How? (Chest pain, [place], [place], pneumonia, PE, COPD, DKA, ARF, appy, cholecystitis, CVA, Diverticulitis, Homicidal, Suicidal, threat to staff... and all critical care pts) @ -yes - Lab Data Result diagrams: 01/21/23 04:30 01/21/23 04:30 Lab Results 01/21/23 01/21/23 Range/Units 04:30 04:30 WBC 9.4 (3.8-10.6) k/uL RBC 4.31 (3.80-5.40) m/uL Hgb 12.5 (11.4-16.0) gm/dL Hct 36.2 (34.0-46.0) % MCV 83.9 (80.0-100.0) fL MCH 28.9 (25.0-35.0) pg MCHC 34.5 (31.0-37.0) g/dL RDW 12.6 (11.5-15.5) % Plt Count 257 (150-450) k/uL MPV 7.3 Neutrophils % 68 % Lymphocytes % 24 % Monocytes % 4 % Eosinophils % 2 % Basophils % 0 % Neutrophils # 6.4 (1.3-7.7) k/uL Lymphocytes # 2.3 (1.0-4.8) k/uL Monocytes # 0.3 (0-1.0) k/uL Eosinophils # 0.2 (0-0.7) k/uL Basophils # 0.0 (0-0.2) k/uL Sodium 135 L (137-145) mmol/L Potassium 4.0 (3.5-5.1) mmol/L Chloride 103 (98-107) mmol/L Carbon Dioxide 21 L (22-30) mmol/L Anion Gap 11 mmol/L BUN 12 (7-17) mg/dL Creatinine 0.57 (0.52-1.04) mg/dL Est GFR (CKD-EPI)AfAm >90 (>60 ml/min/1.73 sqM) Est GFR (CKD-EPI)NonAf >90 (>60 ml/min/1.73 sqM) Glucose 107 H (74-99) mg/dL Calcium 8.8 (8.4-10.2) mg/dL Total Bilirubin 0.4 (0.2-1.3) mg/dL AST 32 (14-36) U/L ALT 34 (4-34) U/L Alkaline Phosphatase 53 (38-126) U/L Total Protein 7.0 (6.3-8.2) g/dL Albumin 4.3 (3.5-5.0) g/dL HCG, Quant 3227.5 mIU/mL Disposition Clinical Impression: Incomplete miscarriage Disposition: HOME SELF-CARE Condition: Stable Instructions (If sedation given, give patient instructions): Miscarriage (ED) Additional Instructions: Please follow-up with Dr. Concepcion your scheduled appointment. Return for any new or worsening symptoms Is patient prescribed a controlled substance at d/c from ED?: No Referrals: None,Stated [Primary Care Provider] - 1-2 days Negar Concepcion DO [Doctor of Osteopathic Medicine] - 1-2 days Time of Disposition: 07:11
[2023-01-21 07:17] VITALS: BP 114/79; PULSE 97; RESP 18; TEMP 98.2
== END 2023-01-21 07:17 | disposition home or self-care (01) ==
LOC: EC 03:11
DX: O03.4 Incomplete spontaneous abortion without complication (principal); Z3A.09 9 weeks gestation of pregnancy
CPT/HCPCS: 36415; 76801; 80053; 84702; 85025; 99284

== ENCOUNTER → 2023-01-24 | Outpatient (CLI) | payer MEDICAID, BC | END | disposition home or self-care (01) | LOC: LABWHC1 15:05 | PROVIDERS: ATTEND Obstetrics & Gynecology | DX: O03.9 Complete or unspecified spontaneous abortion without complication (principal); Z3A.00 Weeks of gestation of pregnancy not specified | CPT/HCPCS: 36415; 84702 ==

== ENCOUNTER → 2023-02-22 | Outpatient (CLI) | payer MEDICAID, BC | END | disposition home or self-care (01) | LOC: LABWHC1 13:05 | PROVIDERS: ATTEND Obstetrics & Gynecology | DX: N92.6 Irregular menstruation, unspecified (principal) | CPT/HCPCS: 36415; 84702 ==

== ENCOUNTER → 2023-02-24 | Outpatient (CLI) | payer MEDICAID, BC | END | disposition home or self-care (01) | LOC: LABWHC1 12:10 | PROVIDERS: ATTEND Obstetrics & Gynecology | DX: N92.6 Irregular menstruation, unspecified (principal) | CPT/HCPCS: 36415; 84702 ==

== ENCOUNTER → 2023-03-16 | Outpatient (CLI) | payer MEDICAID, BC ==
[2023-03-16 13:54] LABS: African American GFR (CKD) >90 (>60 ml/min/1.73 sqM); Glucose 95 mg/dL (74-99); Non-African American GFR(CKD) >90 (>60 ml/min/1.73 sqM)
[2023-03-16 14:02] LABS: HCT 35.3 % (34.0-46.0); HGB 11.6 gm/dL (11.4-16.0); MCH 27.7 pg (25.0-35.0); MCHC 32.8 g/dL (31.0-37.0); MCV 84.5 fL (80.0-100.0); Platelet Count 232 k/uL (150-450); RBC 4.18 m/uL (3.80-5.40); RDW 12.8 % (11.5-15.5); WBC 7.3 k/uL (3.8-10.6)
[2023-03-16 14:11] LABS: T4, Free (Free Thyroxine) 1.16 ng/dL (0.78-2.19)
[2023-03-17 01:02] LABS: HIV 2 AB Non-Reactive (Non-Reactive); HIV AB P24 Non-Reactive (Non-Reactive); HIV P24 AG Non-Reactive (Non-Reactive)
[2023-03-17 07:11] LABS: Hepatitis B Surface Antigen Nonreactive; Hepatitis C IgG Antibody Nonreactive
== END | disposition home or self-care (01) ==
LOC: LABWHC1 11:20
PROVIDERS: ATTEND Obstetrics & Gynecology
DX: Z34.81 Encounter for supervision of other normal pregnancy, first trimester (principal); E03.9 Hypothyroidism, unspecified; Z3A.00 Weeks of gestation of pregnancy not specified
CPT/HCPCS: 36415; 82565; 82947; 84439; 84443; 84479; 84481; 85027; 86762; 86780; 86803; 86850; 86900; 86901; 87340; 87390

== ENCOUNTER → 2023-04-13 | Outpatient (CLI) | payer MEDICAID, BC ==
--- NOTE | 2023-04-13 10:41 | US ---
EXAMINATION TYPE: Transabdominal DATE OF EXAM: 04/13/2023 8:27 AM COMPARISON: NONE CLINICAL INDICATION: Female, 27 years old with history of Z36.89; confirm dates. EXAM PERFORMED: Transabdominal (TA) EXAM MEASUREMENTS: GESTATIONAL AGE / DATING Physician Established: Not yet established Dates by LMP: LMP unknown ( Dates by First Scan: No previous this is first scan Dates by Current Scan for: (11 weeks/6 days) EDC: 10/27/2023 MATERNAL ANATOMY Uterus: 11.5 x 8.2 x 9.3 cm Right Ovary: 3.1 x 1.8 x 2.6 cm Left Ovary: 2.5 x 1.8 x 2.4 cm Post CDS / Adnexa: wnl Presence of free fluid: no Presence of corpus luteal cyst: yes right. There may be a complex cyst with internal echoes in the le ft ovary. This measures 2.5 x 1.8 cm. Presence of subchorionic bleed: no GESTATION / SURVEY CRL: 4.99 (11 weeks/6 days) Heart Rate: 165 bpm Rhythm: Normal IUP: Viable IUP Beta HcG (if available): Not available at this time IMPRESSION: 1. Single intrauterine gestation estimated at 11 weeks 6 days gestation based on crown-rump length. C ardiac activity was 60 bpm. 2. Complex cyst versus slightly hypoechoic ovarian tissue on the left ovary. Follow-up can be perform ed.
== END | disposition home or self-care (01) ==
LOC: RADUSWWP 08:08
PROVIDERS: ATTEND Obstetrics & Gynecology
DX: Z36.89 Encounter for other specified antenatal screening (principal); Z3A.11 11 weeks gestation of pregnancy
CPT/HCPCS: 76801

== ENCOUNTER 2023-04-30 21:17 | Emergency (ER) | payer MEDICAID, BC ==
[2023-04-30 21:38] VITALS: RESP 18
[2023-04-30] MEDS ORDERED: SODIUM CHLORIDE 0.9% 1,000 ML IV ONE (21:43)
--- NOTE | 2023-04-30 21:58 | ED ---
General Adult HPI - General Chief complaint: Abdominal Pain Stated complaint: Possible miscarriage Time Seen by Provider: 04/30/23 21:41 Source: patient Mode of arrival: ambulatory Limitations: no limitations - History of Present Illness Initial comments: Patient is a at 14 weeks gestation who presents to the ED complaining of having vaginal bleeding and lower abdominal cramping that began this evening after coming to work in the hospital. 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 Patient states that she called the on-call PROJ ENGINEER, and she was advised to come to the ED. Patient states that her pain is minimal at this time. Patient states that she has had a miscarriage in the past. Patient states that she had a normal 12 week OB ultrasound during her current . Patient denies trauma or injury, fever or chills, headache, chest pain or pressure, dyspnea, palpitations, dizziness, upper abdominal pain, back pain, nausea/vomiting/diarrhea, dysuria or urinary symptoms, or any other symptoms or complaints. Patient states that her blood type is A+. - Related Data Home Medications Medication Instructions Recorded Confirmed Levothyroxine Sodium 25 mcg PO DAILY 02/09/21 02/10/21 Api045/Iron/FA/O3/Dha/Epa/Fish 1 tab PO DAILY 02/09/21 02/10/21 [ Multi-Dha Softgel] Previous Rx's Medication Instructions Recorded Ibuprofen [Motrin] 600 mg PO Q6H #60 tab 02/12/21 Allergies Allergy/AdvReac Type Severity Reaction Status Date / Time No Known Allergies Allergy Verified 11/08/19 10:09 Review of Systems ROS Statement: Those systems with pertinent positive or pertinent negative responses have been documented in the HPI. ROS Other: All systems not noted in ROS Statement are negative. Past Medical History Past Medical History: No Reported History Additional Past Medical History / Comment(s): chiari malformation reduction 2015 History of Any Multi-Drug Resistant Organisms: None Reported Past Surgical History: Tonsillectomy Additional Past Surgical History / Comment(s): chiari malformation, tonsillectomy, wisdom teeth Additional Past Anesthesia/Blood Transfusion Reaction / Comment(s): no blood transfusiion hx, denies anesthesia issues for self or family. Past Psychological History: No Psychological Hx Reported Smoking Status: Never smoker Past Alcohol Use History: None Reported Past Drug Use History: None Reported - Past Family History Mother Family Medical History: Diabetes Mellitus, Hypertension General Exam Limitations: no limitations General appearance: alert, in no apparent distress Head exam: Present: normocephalic Eye exam: Present: normal appearance ENT exam: Present: mucous membranes moist Respiratory exam: Present: normal lung sounds bilaterally. Absent: respiratory distress, wheezes, rales, rhonchi, stridor Cardiovascular Exam: Present: regular rate, normal rhythm, normal heart sounds, other (Normal radial pulses bilaterally) GI/Abdominal exam: Present: soft. Absent: distended, tenderness, guarding Extremities exam: Absent: tenderness, pedal edema, calf tenderness Neurological exam: Present: alert, oriented X3 Skin exam: Present: warm, dry, intact, normal color Course Vital Signs 04/30/23 21:34 Temperature 98.3 F Pulse Rate 101 H Respiratory 18 Rate Blood Pressure 139/97 O2 Sat by Pulse 100 Oximetry - Reevaluation(s) Reevaluation #1: 04/30/23 23:02 Patient denies development of any new symptoms while in the ED. Patient and significant other are aware of the patient's test results/ultrasound findings, and patient feels comfortable being discharged home at this time. Patient was counseled about threatened abortions and pelvic rest. Patient was clearly explained return and follow-up instructions. Patient was instructed to follow up closely with her PROJ ENGINEER. Patient feels comfortable with this plan. Medical Decision Making - Medical Decision Making Was pt. sent in by a medical professional or institution (, PA, DIRECTIONAL SURVEY DRAFTER, urgent care, hospital, or long term...) When possible be specific @ -No Did you speak to anyone other than the patient for history (EMS, parent, family, police, friend...)? What history was obtained from this source @ -No Did you review nursing and triage notes (agree or disagree)? Why? @ -I reviewed and agree with nursing and triage notes Were old charts reviewed (outside hosp., previous admission, EMS record, old EKG, old radiological studies, urgent care reports/EKG's, long term records)? Report findings @ -No old charts were reviewed Differential Diagnosis (chest pain, altered mental status, abdominal pain women, abdominal pain men, vaginal bleeding, weakness, fever, dyspnea, syncope, headache, dizziness, GI bleed, back pain, seizure, CVA, palpatations, mental health, musculoskeletal)? @ -Spontaneous , missed , threatened , ectopic , vaginal bleeding, abdominal pain, colitis, diverticulitis, appendicitis, UTI, EKG interpreted by me (3pts min.). @ -None done X-rays interpreted by me (1pt min.). @ -None done CT interpreted by me (1pt min.). @ -None done U/S interpreted by me (1pt. min.). @ -As above. What testing was considered but not performed or refused? (CT, X-rays, U/S, labs)? Why? @ -None What meds were considered but not given or refused? Why? @ -None Did you discuss the management of the patient with other professionals (professionals i.e. , PA, DIRECTIONAL SURVEY DRAFTER, lab, RT, psych nurse, psychiatric social worker supervisor, unloader operator, teacher, collection officer, shoe parts caser)? Give summary @ -No Was smoking cessation discussed for >3mins.? @ -No Was critical care preformed (if so, how long)? @ -No Were there social determinants of health that impacted care today? How? (Homelessness, low income, unemployed, alcoholism, drug addiction, transportation, low edu. Level, literacy, decrease access to med. care, long term, rehab)? @ -No Was there de-escalation of care discussed even if they declined (Discuss DNR or withdrawal of care, Hospice)? DNR status @ -No What co-morbidities impacted this encounter? (DM, HTN, Smoking, COPD, CAD, Cancer, CVA, ARF, Chemo, Hep., AIDS, mental health diagnosis, sleep apnea, morbid obesity)? @ -None Was patient admitted / discharged? Hospital course, mention meds given and route, prescriptions, significant lab abnormalities, going to OR and other pertinent info. @ -Patient's blood type is A+. Patient's OB ultrasound shows a normal IUP with heart rate measured at 146 bpm. Patient's hemoglobin is normal/stable. Will discharge patient home with her significant other at this time with i nstructions to follow up closely with her PROJ ENGINEER. Patient feels comfortable with this plan. Undiagnosed new problem with uncertain prognosis? @ -No Drug Therapy requiring intensive monitoring for toxicity (Heparin, Nitro, Insulin, Cardizem)? @ -No Were any procedures done? @ -No Diagnosis/symptom? @ -Threatened Acute, or Chronic, or Acute on Chronic? @ -Acute Uncomplicated (without systemic symptoms) or Complicated (systemic symptoms)? @ -default Side effects of treatment? @ -No Exacerbation, Progression, or Severe Exacerbation? @ -No Poses a threat to life or bodily function? How? (Chest pain, [place], [place], pneumonia, PE, COPD, DKA, ARF, appy, cholecystitis, CVA, Diverticulitis, Homicidal, Suicidal, threat to staff... and all critical care pts) @ -No - Lab Data Result diagrams: 04/30/23 22:17 04/30/23 22:17 Lab Results 04/30/23 04/30/23 Range/Units 22:17 22:17 WBC 11.1 H (3.8-10.6) k/uL RBC 4.19 (3.80-5.40) m/uL Hgb 12.4 (11.4-16.0) gm/dL Hct 35.5 (34.0-46.0) % MCV 84.7 (80.0-100.0) fL MCH 29.7 (25.0-35.0) pg MCHC 35.1 (31.0-37.0) g/dL RDW 13.2 (11.5-15.5) % Plt Count 247 (150-450) k/uL MPV 7.8 Neutrophils % 74 % Lymphocytes % 21 % Monocytes % 3 % Eosinophils % 1 % Basophils % 0 % Neutrophils # 8.2 H (1.3-7.7) k/uL Lymphocytes # 2.4 (1.0-4.8) k/uL Monocytes # 0.3 (0-1.0) k/uL Eosinophils # 0.2 (0-0.7) k/uL Basophils # 0.0 (0-0.2) k/uL Sodium 133 L (137-145) mmol/L Potassium 3.8 (3.5-5.1) mmol/L Chloride 102 (98-107) mmol/L Carbon Dioxide 21 L (22-30) mmol/L Anion Gap 10 mmol/L BUN 7 (7-17) mg/dL Creatinine 0.53 (0.52-1.04) mg/dL Est GFR (CKD-EPI)AfAm >90 (>60 ml/min/1.73 sqM) Est GFR (CKD-EPI)NonAf >90 (>60 ml/min/1.73 sqM) Glucose 89 (74-99) mg/dL Calcium 9.2 (8.4-10.2) mg/dL Total Bilirubin 0.5 (0.2-1.3) mg/dL AST 22 (14-36) U/L ALT 30 (4-34) U/L Alkaline Phosphatase 71 (38-126) U/L Total Protein 7.7 (6.3-8.2) g/dL Albumin 4.2 (3.5-5.0) g/dL Lipase 55 (23-300) U/L - Radiology Data OB ultrasound: Single intrauterine gestation estimated 14 weeks 4 days gestation. Cardiac activity measures 146 bpm. Disposition Clinical Impression: Threatened Disposition: HOME SELF-CARE Condition: Stable Instructions (If sedation given, give patient instructions): Threatened Miscarriage (ED) Additional Instructions: Return to the ER immediately should you develop new or worsening pain, increased bleeding, a fever, shortness of breath, feeling dizzy or faint, or new or worsening symptoms. Follow up closely with your PROJ ENGINEER doctor. Is patient prescribed a controlled substance at d/c from ED?: No Referrals: Negar Concepcion DO [Primary Care Provider] - 1-2 days Time of Disposition: 23:06
[2023-04-30 22:32] LABS: Basophils % (A) 0 %; Eosinophils # (A) 0.2 k/uL (0-0.7); Eosinophils % (A) 1 %; HCT 35.5 % (34.0-46.0); HGB 12.4 gm/dL (11.4-16.0); Lymphocytes # (A) 2.4 k/uL (1.0-4.8); Lymphocytes % (A) 21 %; MCH 29.7 pg (25.0-35.0); MCHC 35.1 g/dL (31.0-37.0); MCV 84.7 fL (80.0-100.0); Mean Platelet Volume 7.8; Monocytes # (A) 0.3 k/uL (0-1.0); Monocytes % (A) 3 %; Neutrophils # (A) 8.2 k/uL (1.3-7.7); Neutrophils % (A) 74 %; Platelet Count 247 k/uL (150-450); RBC 4.19 m/uL (3.80-5.40); RDW 13.2 % (11.5-15.5); WBC 11.1 k/uL (3.8-10.6)
[2023-04-30 22:41] LABS: ALT 30 U/L (4-34); AST 22 U/L (14-36); African American GFR (CKD) >90 (>60 ml/min/1.73 sqM); Albumin 4.2 g/dL (3.5-5.0); Alkaline Phosphatase 71 U/L (38-126); Anion Gap 10 mmol/L; Blood Urea Nitrogen 7 mg/dL (7-17); Calcium 9.2 mg/dL (8.4-10.2); Carbon Dioxide 21 mmol/L (22-30); Chloride 102 mmol/L (98-107); Glucose 89 mg/dL (74-99); Lipase 55 U/L (23-300); Non-African American GFR(CKD) >90 (>60 ml/min/1.73 sqM); Potassium 3.8 mmol/L (3.5-5.1); Sodium 133 mmol/L (137-145); Total Bilirubin 0.5 mg/dL (0.2-1.3); Total Protein 7.7 g/dL (6.3-8.2)
--- NOTE | 2023-04-30 22:51 | US ---
EXAMINATION TYPE: US OB >= 14 wk fetus DATE OF EXAM: 04/30/2023 COMPARISON: US CLINICAL INDICATION: Female, 27 years old with history of bleeding, pain, concern for miscarriage; Pt states bright red vaginal bleeding that started today, denies clots TECHNIQUE: Transabdominal (TA) GESTATIONAL AGE / DATING Physician Established: (14 weeks/2 days) EDC: 10/27/2023 Dates by LMP: LMP unknown Dates by First Scan: (14 weeks/2 days) EDC: 10/27/2023 Dates by Current Scan: (14 weeks/4 days) EDC: 10/25/2023 SURVEY IUP: Single PLACENTA: Posterior PREVIA: No Previa SALBADOR: 10.1 cm Normal CERVICAL LENGTH (transabdominal: norm > 3.0cm): 3.1 cm BIOMETRY PRESENTATION: Breech BPD: 2.7 cm 15 weeks / 0 days HC: 10.0 cm 14 weeks / 5 days AC: 8.0 cm 14 weeks / 3 days FL: 1.4 cm 14 weeks / 1 days ESTIMATED WEIGHT IN GRAMS: 93 grams ESTIMATED WEIGHT IN LBS/OZ: 0 lbs. 3 oz. WEIGHT PERCENTAGE BASED ON ESTABLISHED DATES: 32% HC/AC: 1.25 Normal FL/AC: 17 Normal HEART RATE: 146 bpm RHYTHM: Normal Single, viable IUP. No abnormality visualized today to account for pt's symptoms IMPRESSION: Single intrauterine gestation estimated 14 weeks 4 days gestation. Cardiac activity measures 146 bpm.
[2023-04-30 23:32] VITALS: BP 144/88; PULSE 91; TEMP 89.3
== END 2023-04-30 23:32 | disposition home or self-care (01) ==
LOC: EC 21:17
DX: O20.0 Threatened abortion (principal); Z3A.14 14 weeks gestation of pregnancy
CPT/HCPCS: 36415; 76805; 80053; 83690; 84702; 85025; 86850; 86900; 86901; 96360; 99284

== ENCOUNTER → 2023-05-13 | Outpatient (CLI) | payer MEDICAID, BC ==
[2023-05-13 16:45] LABS: T4, Free (Free Thyroxine) 1.2 ng/dL (0.80-1.80)
== END | disposition home or self-care (01) ==
LOC: LABWHC1 09:36
PROVIDERS: ATTEND Obstetrics & Gynecology
DX: Z34.82 Encounter for supervision of other normal pregnancy, second trimester (principal); Z3A.00 Weeks of gestation of pregnancy not specified
CPT/HCPCS: 36415; 82105; 82677; 84439; 84443; 84702; 86336

== ENCOUNTER → 2023-05-19 | Outpatient (CLI) | payer MEDICAID, BC ==
--- NOTE | 2023-05-19 11:17 | US ---
EXAMINATION TYPE: US OB >= 14 wk fetus DATE OF EXAM: 05/19/2023 COMPARISON: US CLINICAL INDICATION: Female, 27 years old with history of O46.92; Pt states light vaginal bleeding an d cramping TECHNIQUE: Transabdominal (TA) GESTATIONAL AGE / DATING Physician Established: (17 weeks/0 days) EDC: 10/27/2023 Dates by LMP: (17 weeks/0 days) EDC: 10/27/2023 Dates by First Scan: (17 weeks/0 days) EDC: 10/27/2023 Dates by Current Scan: (17 weeks/1 days) EDC: 10/26/2023 SURVEY IUP: Single PLACENTA: Posterior PREVIA: No Previa SALBADOR: 10.6 cm Normal CERVICAL LENGTH (transabdominal: norm > 3.0cm): 3.1 cm BIOMETRY PRESENTATION: Vertex BPD: 3.8 cm 17 weeks / 3 days HC: 13.7 cm 17 weeks / 1 days AC: 11.3 cm 17 weeks / 1 days FL: 2.2 cm 16 weeks / 4 days ESTIMATED WEIGHT IN GRAMS: 174 grams ESTIMATED WEIGHT IN LBS/OZ: 0 lbs. 6 oz. WEIGHT PERCENTAGE BASED ON ESTABLISHED DATES: 37% HC/AC: 1.21 Normal FL/AC: 20 Normal HEART RATE: 151 bpm RHYTHM: Normal Single, viable IUP/ ?subchorionic bleed anterior uterus separate from placenta IMPRESSION: Subchorionic hemorrhage is difficult to exclude. Follow-up is recommended.
== END | disposition home or self-care (01) ==
LOC: RADUSWWP 10:07
PROVIDERS: ATTEND Obstetrics & Gynecology
DX: O46.92 Antepartum hemorrhage, unspecified, second trimester (principal); Z3A.14 14 weeks gestation of pregnancy
CPT/HCPCS: 76805

== ENCOUNTER → 2023-05-26 | Outpatient (CLI) | payer MEDICAID, BC ==
--- NOTE | 2023-05-26 12:10 | US ---
EXAMINATION TYPE: US OB >= 14 wk fetus DATE OF EXAM: 05/26/2023 COMPARISON: Ultrasound OB 05/19/2023, 04/30/2023 CLINICAL INDICATION: Female, 27 years old with history of O41.8X90 OTH DISRD OF AMNIOTIC FLUID AND ME MBRNS,; follow up to previous subchorionic hemorrhage bleeding. TECHNIQUE: Transabdominal (TA) GESTATIONAL AGE / DATING Physician Established: (18 weeks/0 days) EDC: 10/27/2023 Dates by LMP: (18 weeks/0 days) EDC: Dates by First Scan: (18 weeks/0 days) EDC: Dates by Current Scan: (18 weeks/2 days) EDC: 10/25/2023 SURVEY IUP: Single PLACENTA: Posterior PREVIA: No Previa SALBADOR: 156 cm Normal CERVICAL LENGTH (transabdominal: norm > 3.0cm): 4.1 cm BIOMETRY PRESENTATION: Vertex LIE: variable BPD: 3.83 cm 17 weeks / 5 days HC: 14.97 cm 18 weeks / 1 days AC: 12.75 cm 18 weeks / 3 days FL: 2.77 cm 18 weeks / 4 days ESTIMATED WEIGHT IN GRAMS: 235 grams ESTIMATED WEIGHT IN LBS/OZ: 0 lbs.8 oz. WEIGHT PERCENTAGE BASED ON HC/AC: 1.17 cm Normal FL/AC: 22 % Normal HEART RATE: 156 bpm RHYTHM: Normal Stable subchorionic hemorrhage seen measuring 7 cm. Single live intrauterine gestation. IMPRESSION: 1. Single live intrauterine gestation with estimated gestational age of 18 weeks 2 days with estimate d due date of 10/25/2023. 2. Stable subchorionic hemorrhage. Close clinical surveillance is recommended.
== END | disposition home or self-care (01) ==
LOC: RADUSWWP 10:41
PROVIDERS: ATTEND Obstetrics & Gynecology
DX: O41.8X90 Other specified disorders of amniotic fluid and membranes, unspecified trimester, not applicable or unspecified (principal); O20.8 Other hemorrhage in early pregnancy; Z3A.18 18 weeks gestation of pregnancy
CPT/HCPCS: 76805

== ENCOUNTER → 2023-06-13 | Outpatient (CLI) | payer MEDICAID, BC ==
--- NOTE | 2023-06-13 09:39 | US ---
EXAMINATION TYPE: US OB anatomy transabd DATE OF EXAM: 06/13/2023 COMPARISON: US CLINICAL INDICATION: Female, 27 years old with history of O36.62X0 MATERNAL CARE FOR EXCESS FERN WTH, SE; Anatomy scan, F/U bleed TECHNIQUE: Transabdominal (TA) EXAM MEASUREMENTS: GESTATIONAL AGE / DATING Physician Established: (20 weeks/4 days) EDC: 10/27/2023 Dates by LMP: (20 weeks/4 days) EDC: 10/27/2023 Dates by First Scan: (20 weeks/4 days) EDC: 10/27/2023 Dates by Current Scan for: (20 weeks/4 days) EDC: 10/27/2023 SURVEY IUP: Single PLACENTA: Posterior PREVIA: No previa SALBADOR: 11.0 cm Normal CERVICAL LENGTH (transabdominal: norm > 3.0cm): 3.6 cm BIOMETRY PRESENTATION: Breech LIE: Transverse lie with head maternal Left BPD: 4.6 cm 20 weeks / 0 days HC: 17.9 cm 20 weeks / 3 days AC: 15.5 cm 20 weeks / 5 days FL: 3.5 cm 21 weeks / 1 days ESTIMATED WEIGHT IN GRAMS: 375 grams ESTIMATED WEIGHT IN LBS/OZ: 0 lbs. 13 oz. WEIGHT PERCENTAGE BASED ON ESTABLISHED DATE: 56 % HC/AC: 1.15 Normal FL/AC: 23 Normal HEART RATE: 150 bpm RHYTHM: Normal ANATOMY SEEN (within normal limits): * Lateral Vent (< 1 cm) 0.6 cm * Cisterna Magna (< 1.1 cm) 0.6 cm * Nuchal Fold (< 0.6 cm) 0.3 cm * Cerebellum (varies with age) 1.9 cm Choroid Plexus (bilateral) Midline Falx Cavus Septi Pellucidi Four Chamber Heart Outflow tracts: LVOT/RVOT Situs Nose / Lips Diaphragm Kidneys (bilateral) Bladder Cord Insert Three Vessel Cord Arms (bilateral) Legs (bilateral) ANATOMY NOT SEEN: Longitudinal Spine - Spine down Transverse Spine - Spine down ANATOMY VISUALIZED NOT WNL: Stomach- echogenic focus within stomach IMPRESSION: 1. Single, viable IUP/ Anatomy visualized commented above/ Bleed visualized on prior exams still vis ualized today, however appears to have reduce in size= 5.1 x 5.8 cm. 2. Echogenic focus within the gastric lumen could represent ingested debris/amniotic fluid. Consider follow-up sided dedicated imaging Center.
== END | disposition home or self-care (01) ==
LOC: RADUSWWP 07:39
PROVIDERS: ATTEND Obstetrics & Gynecology
DX: O46.92 Antepartum hemorrhage, unspecified, second trimester (principal); O36.62X0 Maternal care for excessive fetal growth, second trimester, not applicable or unspecified; Z3A.21 21 weeks gestation of pregnancy
CPT/HCPCS: 76811

== ENCOUNTER → 2023-07-04 | Outpatient (CLI) | payer OTHER ==
--- NOTE | 2023-07-04 17:07 | US ---
EXAMINATION TYPE: US OB Call Back DATE OF EXAM: 07/04/2023 COMPARISON: NONE CLINICAL INDICATION: Female, 27 years old with history of RECHECK [id number] - OB CALLBACK; Spine GESTATIONAL AGE / DATING Dates by Initial Survey Scan: (23 weeks/4 days) EDC: 10/27/2023 HEART RATE: 140 bpm RHYTHM: Normal ANATOMY SEEN (second anatomic survey look): Longitudinal Spine: wnl as seen Transverse Spine: wnl as seen skin line difficult to assess due to positioning IMPRESSION: Limited exam without obvious abnormality of the spine, follow up at a dedicated pediatric imaging [facility] if there is remains concern.
== END ==
LOC: RADUSWWP 16:21
PROVIDERS: ATTEND Obstetrics & Gynecology
DX: O36.62X0 Maternal care for excessive fetal growth, second trimester, not applicable or unspecified (principal); Z3A.23 23 weeks gestation of pregnancy

== ENCOUNTER → 2023-07-25 | Outpatient (CLI) | payer MEDICAID, BC ==
[2023-07-25 16:08] LABS: HCT 31.6 % (37.2-46.3); HGB 10.4 d/dL (12.0-15.0); MCH 29.6 pg (27.0-32.0); MCHC 32.9 d/dL (32.0-37.0); Mean Platelet Volume 10.5 FL (9.5-12.2); NRBC Per 100 WBC 0 X 10*3/uL (0.00-0.01); Platelet Count 325 X 10*3/uL (140-440); RBC 3.51 X 10*6/uL (4.10-5.20); WBC 11.31 X 10*3/uL (4.50-10.00)
== END | disposition home or self-care (01) ==
LOC: LABWHC1 09:51
PROVIDERS: ATTEND Obstetrics & Gynecology
DX: Z34.82 Encounter for supervision of other normal pregnancy, second trimester (principal); Z3A.00 Weeks of gestation of pregnancy not specified
CPT/HCPCS: 36415; 82950; 85027

== ENCOUNTER 2023-09-05 15:00 | Outpatient (CLI) | payer MEDICAID, BC ==
[2023-09-05 16:38] VITALS: RESP 16; TEMP 97.4
[2023-09-05 17:02] VITALS: BP 132/78; PULSE 98
--- NOTE | 2023-09-05 17:10 | US ---
EXAMINATION TYPE: US OB limited DATE OF EXAM: 09/05/2023 COMPARISON: NONE CLINICAL INDICATION: Female, 27 years old with history of salbador; EXAM PERFORMED: Transabdominal (TA) GESTATIONAL AGE / DATING Physician Established: (32 weeks/4 days) EDC: 10/27/2023 Dates by Current Scan: Not assessed No growth performed on today?s study per ordering physician SURVEY PLACENTA: Not imaged PREVIA: Not assessed SALBADOR: 6.35 cm Oligohydraminos; rescanned due to low value 7.1 cm Ultrasound evidence of premature rupture of membranes? N/A CERVICAL LENGTH (transabdominal: norm > 3.0cm): Not Assessed PRESENTATION: Cephalic LIE: Longitudinal HEART RATE: 137 bpm RHYTHM: Normal Nurse Marry asked for slip - verbal preliminary of values and position given IMPRESSION: 1. Oligohydramnios as noted above.
== END 2023-09-05 17:00 | disposition home or self-care (01) ==
LOC: FBPOP 15:00
PROVIDERS: ATTEND Obstetrics & Gynecology
DX: O41.03X0 Oligohydramnios, third trimester, not applicable or unspecified (principal); Z3A.32 32 weeks gestation of pregnancy
CPT/HCPCS: 59025; 76815; 99213

== ENCOUNTER 2023-09-08 07:36 | Outpatient (CLI) | payer MEDICAID, BC ==
[2023-09-08] MEDS ORDERED: LACTATED RINGERS 1,000 ML IV SCH (08:45)
[2023-09-08 10:54] VITALS: BP 144/75; PULSE 114; RESP 16; TEMP 96.8
--- NOTE | 2023-09-08 11:15 | P.MSEPDOC ---
Presenting Problems - Arrival Data Date of Arrival on Unit: 09/08/23 Time of Arrival on Unit: 07:36 Mode of Transport: Ambulatory - Complaint OB-Reason for Admission/Chief Complaint: NST Comment: pt to triage for twice weekly nst, and noted to be having regular painless contractions Medical History - Information : 3 Para: 1 Term: 1 : 0 Abortions: Spontaneous or Elective: 1 Number of Living Children: 1 - Gestational Age Gestational Age by ROGELIO (wks/days): 33 Weeks and 0 Days - History Complications: Other Comment: oligohydramnios Review of Systems - Review of Systems Constitutional: No problems Breast: No problems ENT: No problems Cardiovascular: No problems Respiratory: No problems Gastrointestinal: No problems Genitourinary: No problems Musculoskeletal: No problems Neurological: No problems Skin: No problems Vital Signs - Temperature Temperature: 96.8 F Temperature Source: Temporal Artery Scan - Pulse Right Sitting Pulse Rate: 114 Pulse Assessment Method: Automatic Cuff - Respirations Respiratory Rate: 16 Oxygen Delivery Method: Room Air - Blood Pressure Right Arm Blood Pressure: 144/75 Blood Pressure Mean: 98 Blood Pressure Source: Automatic Cuff - Comment Vital Signs Comment: repeat bp 131/75, 122/68, 127/76 Medical Screen Scoring - Cervical Exam Dilation (cm): 1 Membranes: Intact - Uterine Contractions Frequency From (mins): 2 Frequency To (mins): 5 Duration From (seconds): 50 Duration To (seconds): 60 Intensity: Mild Resting: Soft to palpation - Assessment - Baby A Baseline FHR: 135 Heart Rate - NICHD Category: Category I (Normal) NST: Reactive Physician Notification - Physician Notified Physician Notified Date: 09/08/23 Physician Notified Time: 10:03 Physician: Negar Concepcion New Order Received: Yes Maternal Triage Index - Urgent/Priority 2 Urgent Priority 2: Yes Provider Notified: Negar Concepcion Provider Notified Time: 08:38 Criteria Met for Priority 2: 33 0/7, painless contractions 2-5 minutes, reactive nst, vag exam 1cm/thick/high, ffn negative Disposition - Disposition OB Disposition: Discharge to home, Written follow up instructions reviewed Discharge Date: 09/08/23 Discharge Time: 10:05 I agree with the RN Medical Screening Exam: Yes Case reviewed; plan agreed upon as documented in EMR&OBIX.: Yes Diagnosis: DEHYDRATION
== END 2023-09-08 10:05 | disposition home or self-care (01) ==
LOC: FBPOP 07:36
PROVIDERS: ATTEND Obstetrics & Gynecology
DX: O99.283 Endocrine, nutritional and metabolic diseases complicating pregnancy, third trimester (principal); Z3A.33 33 weeks gestation of pregnancy
CPT/HCPCS: 59025; 82731; 96361; 96365; 99213

== ENCOUNTER 2023-09-10 15:25 | Outpatient (CLI) | payer MEDICAID, BC ==
[2023-09-10 15:44] VITALS: BP 125/57; PULSE 100; RESP 16; TEMP 97
== END 2023-09-10 15:50 ==
LOC: FBPOP 15:25
PROVIDERS: ATTEND Obstetrics & Gynecology
DX: O41.03X0 Oligohydramnios, third trimester, not applicable or unspecified (principal); Z3A.33 33 weeks gestation of pregnancy
CPT/HCPCS: 59025

== ENCOUNTER 2023-09-14 17:09 | Outpatient (CLI) | payer MEDICAID, BC | END 2023-09-14 17:38 | disposition home or self-care (01) | LOC: FBPOP 17:09 | PROVIDERS: ATTEND Obstetrics & Gynecology | DX: O41.00X0 Oligohydramnios, unspecified trimester, not applicable or unspecified (principal); Z3A.00 Weeks of gestation of pregnancy not specified | CPT/HCPCS: 59025 ==

== ENCOUNTER 2023-09-21 17:29 | Outpatient (CLI) | payer MEDICAID, BC ==
[2023-09-21 18:13] VITALS: BP 128/75; PULSE 93; RESP 16; TEMP 96.6
--- NOTE | 2023-09-22 08:45 | P.MSEPDOC ---
Presenting Problems - Arrival Data Date of Arrival on Unit: 09/21/23 Time of Arrival on Unit: 16:45 Mode of Transport: Ambulatory - Complaint OB-Reason for Admission/Chief Complaint: NST Comment: Pt reports to triage for twice weekly nst; script on file c\order to discharge home if reactive; oligohydramnios Medical History - Information : 2 Para: 1 - Gestational Age Gestational Age by ROGELIO (wks/days): 34 Weeks and 6 Days Review of Systems - Review of Systems Constitutional: No problems Breast: No problems ENT: No problems Cardiovascular: No problems Respiratory: No problems Gastrointestinal: No problems Genitourinary: No problems Musculoskeletal: No problems Neurological: No problems Skin: No problems Vital Signs - Temperature Temperature: 96.6 F Temperature Source: Temporal Artery Scan - Pulse Right Sitting Brachial Pulse Rate: 93 Pulse Assessment Method: Pulse Oximetry - Respirations Respiratory Rate: 16 Oxygen Delivery Method: Room Air - Blood Pressure Right Arm Sitting Blood Pressure: 128/75 Blood Pressure Mean: 92 Blood Pressure Source: Automatic Cuff Medical Screen Scoring - Assessment - Baby A Baseline FHR: 130 Heart Rate - NICHD Category: Category I (Normal) NST: Reactive Physician Notification - Physician Notified Physician Notified Date: 09/21/23 Physician Notified Time: 17:45 Physician: Negar Concepcion Order Received: Yes - Notification Comment Comment: Pt c\reactive, Cat I FHT. Discharged home per order. Pt to follow up as scheduled. Maternal Triage Index - Maternal Triage Index Presenting for scheduled procedure w/no complaint: Yes - Scheduled/Requesting Priority 5 Scheduled/Requesting Priority 5: Yes Criteria Met for Priority 5: NST Disposition - Disposition OB Disposition: Discharge to home, Written follow up instructions reviewed Discharge Date: 09/21/23 Discharge Time: 17:55 I agree with the RN Medical Screening Exam: Yes Case reviewed; plan agreed upon as documented in EMR&OBIX.: Yes Diagnosis: OLIGOHYDRAMNIOS, THIRD TRIMESTER, NOT APPLICABLE OR UNSP
== END 2023-09-21 17:55 | disposition home or self-care (01) ==
LOC: FBPOP 17:29
PROVIDERS: ATTEND Obstetrics & Gynecology
DX: O41.03X1 Oligohydramnios, third trimester, fetus 1 (principal); Z3A.34 34 weeks gestation of pregnancy
CPT/HCPCS: 59025

== ENCOUNTER → 2023-09-23 | Outpatient (CLI) | payer MEDICAID, BC ==
--- NOTE | 2023-09-23 10:43 | US ---
EXAMINATION TYPE: US OB >= 14 wk fetus DATE OF EXAM: 09/23/2023 COMPARISON: 09/05/2023 CLINICAL INDICATION: Female, 27 years old with history of O36.63X0 MATERNAL CARE FOR EXCESS FERN WTH, TH; Hx low fluid 09/05/2023 TECHNIQUE: GESTATIONAL AGE / DATING Physician Established: (35 weeks/1 days) EDC: 10/27/2023 Dates by LMP: (NA weeks/NA days) EDC: NA Dates by First Scan: (35 weeks/1 days) EDC: 10/27/2023 Dates by Current Scan: (35 weeks/4 days) EDC: 10/24/2023 Beta HCG (if available): Not available at this time SURVEY IUP: Single PLACENTA: Right UT Body PREVIA: No Previa SALBADOR: 12.8 cm Normal CERVICAL LENGTH (transabdominal: norm > 3.0cm): 3.3 cm BIOMETRY PRESENTATION: Cephalic LIE: Longitudinal BPD: 8.72 cm 35 weeks / 2 days HC: 31.78 cm 35 weeks / 6 days AC: 31.21 cm 35 weeks / 2 days FL: 6.94 cm 35 weeks / 5 days ESTIMATED WEIGHT IN GRAMS: 2653 grams ESTIMATED WEIGHT IN LBS/OZ: 5 lbs. 14 oz. WEIGHT PERCENTAGE BASED ON ESTABLISHED DATES: 53% HC/AC: 1.02 Normal FL/AC: 22% Normal HEART RATE: 135 bpm RHYTHM: Normal IMPRESSION: Single live intrauterine gestation with ultrasound age 35 weeks 4 days. Additional information as yaw cribed above.
== END | disposition home or self-care (01) ==
LOC: RADUSWWP 08:12
PROVIDERS: ATTEND Obstetrics & Gynecology
DX: O36.63X0 Maternal care for excessive fetal growth, third trimester, not applicable or unspecified (principal); Z3A.36 36 weeks gestation of pregnancy
CPT/HCPCS: 76805

== ENCOUNTER 2023-09-29 07:34 | Outpatient (CLI) | payer MEDICAID, BC ==
[2023-09-29 08:40] VITALS: BP 124/72; PULSE 88; RESP 16; TEMP 97.8
--- NOTE | 2023-10-01 05:04 | P.MSEPDOC ---
Presenting Problems - Arrival Data Date of Arrival on Unit: 09/29/23 Time of Arrival on Unit: 07:34 Mode of Transport: Ambulatory - Complaint OB-Reason for Admission/Chief Complaint: NST Comment: pt arrived for her schedule NST per Dr Concepcion Medical History - Information : 3 Para: 1 Term: 1 : 0 Abortions: Spontaneous or Elective: 1 Number of Living Children: 1 - Gestational Age Gestational Age by ROGELIO (wks/days): 36 Weeks and 0 Days Review of Systems - Review of Systems Constitutional: No problems Breast: No problems ENT: No problems Cardiovascular: No problems Respiratory: No problems Gastrointestinal: No problems Genitourinary: No problems Musculoskeletal: No problems Neurological: No problems Skin: No problems Vital Signs - Temperature Temperature: 97.8 F Temperature Source: Oral - Pulse Right Brachial Pulse Rate: 88 Pulse Assessment Method: Automatic Cuff - Respirations Respiratory Rate: 16 Oxygen Delivery Method: Room Air Fraction of Inspired Oxygen (FIO2): 99 - Blood Pressure Right Arm Blood Pressure: 124/72 Blood Pressure Mean: 89 Blood Pressure Source: Automatic Cuff Physician Notification - Physician Notified Physician Notified Date: 09/29/23 Physician Notified Time: 08:10 Physician: Ngear Concepcion Order Received: Yes - Notification Comment Comment: pt discharged to home with instructions Maternal Triage Index - Scheduled/Requesting Priority 5 Scheduled/Requesting Priority 5: Yes Criteria Met for Priority 5: pt arrived for her scheduled weekly NST per Dr Concepcion Disposition - Disposition OB Disposition: Discharge to home Discharge Date: 09/29/23 Discharge Time: 08:14 I agree with the RN Medical Screening Exam: Yes Case reviewed; plan agreed upon as documented in EMR&OBIX.: Yes Diagnosis: DECREASED MOVEMENTS, THIRD TRIMESTER, UNSP
== END 2023-09-29 08:14 | disposition home or self-care (01) ==
LOC: FBPOP 07:34
PROVIDERS: ATTEND Obstetrics & Gynecology
DX: O36.8131 Decreased fetal movements, third trimester, fetus 1 (principal); Z3A.36 36 weeks gestation of pregnancy
CPT/HCPCS: 59025

== ENCOUNTER 2023-10-05 23:25 | Outpatient (CLI) | payer MEDICAID, BC ==
[2023-10-06 01:38] VITALS: BP 132/81; PULSE 114; RESP 16; TEMP 97.2
--- NOTE | 2023-10-06 09:25 | P.MSEPDOC ---
Presenting Problems - Arrival Data Date of Arrival on Unit: 10/06/23 Time of Arrival on Unit: 23:25 Mode of Transport: Ambulatory - Complaint OB-Reason for Admission/Chief Complaint: Possible Onset of Labor Comment: Patient presents to triage for contractions that started at 1800 10/05/22. Patient was rating contraction pain 7/10. Medical History - Information : 3 Para: 1 Term: 1 : 0 Abortions: Spontaneous or Elective: 1 Number of Living Children: 1 - Gestational Age Gestational Age by ROGELIO (wks/days): 37 Weeks and 0 Days Review of Systems - Review of Systems Constitutional: No problems Breast: No problems ENT: No problems Cardiovascular: No problems Respiratory: No problems Gastrointestinal: No problems Genitourinary: No problems Musculoskeletal: No problems Neurological: No problems Skin: No problems Vital Signs - Temperature Temperature: 97.2 F Temperature Source: Temporal Artery Scan - Pulse Pulse Oximetery Pulse Rate: 114 Pulse Assessment Method: Pulse Oximetry - Respirations Respiratory Rate: 16 Oxygen Delivery Method: Room Air O2 Sat by Pulse Oximetry: 98 - Blood Pressure Right Arm Blood Pressure: 132/81 Blood Pressure Mean: 98 Blood Pressure Source: Automatic Cuff Physician Notification - Physician Notified Physician Notified Date: 10/06/23 Physician Notified Time: 00:44 Physician: Negar Concepcion Order Received: Yes (discharge home) Maternal Triage Index - Maternal Triage Index Presenting for scheduled procedure w/no complaint: No - Stat/Priority 1 Stat Priority 1: No - Urgent/Priority 2 Urgent Priority 2: No - Prompt/Priority 3 Prompt Priority 3: No - Non-Urgent/Priority 4 Non-Urgent Priority 4: Yes Criteria Met for Priority 4: Patient presents to triage for contractions that started at 1800 10/05/22. Patient was rating contraction pain 7/10. Disposition - Disposition OB Disposition: Discharge to home I agree with the RN Medical Screening Exam: Yes Case reviewed; plan agreed upon as documented in EMR&OBIX.: Yes Diagnosis: FALSE LABOR AT OR AFTER 37 COMPLETED WEEKS OF GESTATION
== END 2023-10-06 01:23 ==
LOC: FBPOP 23:25
PROVIDERS: ATTEND Obstetrics & Gynecology
DX: O47.1 False labor at or after 37 completed weeks of gestation (principal); Z3A.37 37 weeks gestation of pregnancy
CPT/HCPCS: 59025; 99213

== ENCOUNTER 2023-10-12 14:05 | Outpatient (CLI) | payer MEDICAID, BC | END 2023-10-12 14:48 | disposition home or self-care (01) | LOC: FBPOP 14:05 | PROVIDERS: ATTEND Obstetrics & Gynecology | DX: O41.00X1 Oligohydramnios, unspecified trimester, fetus 1 (principal); Z3A.00 Weeks of gestation of pregnancy not specified | CPT/HCPCS: 59025 ==

== ENCOUNTER 2023-10-21 05:55 | Inpatient (IN) | payer MEDICAID, BC ==
--- NOTE | 2023-10-20 15:14 | P.HPOB ---
History of Present Illness H&P Date: 10/20/23 Chief Complaint: Induction of labor This is a 27-year-old female 3 para 1 with an estimated date of confinement of October 28, 2023, estimated gestational age of 39-0/7 weeks, who presents to labor and delivery for induction of labor. Her was complicated by decreased movement. She was seen by maternal- medicine due to low SALBADOR on ultrasound here but SALBADOR was normal there. She also did have some bleeding at about 18 weeks and was diagnosed with a subchorionic bleed. This did resolve also. She has been doing regular nonstress test due to the history of decreased movement and oligohydramnios. Again the oligohydramnios did resolve. labs: GC/chlamydia-negative Random glucose-95 Hemoglobin-11.6 Hepatitis B surface antigen-nonreactive Hepatitis C antibody-nonreactive Rubella-immune Syphilis antibody-nonreactive HIV-nonreactive Blood type-a positive Antibody screen-negative Trichomonas-negative Quad screen-negative 1 hour Glucola-122 Group B streptococcus-negative Obstetrical history: G3, P1. History of 1 vaginal delivery at term with no complications. History of 1 miscarriage. Gynecologic history: No history of sexually transmitted diseases. Social history: She is . 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 Review of Systems Constitutional: Denies chills, Denies fever Eyes: denies blurred vision, denies pain Ears, nose, mouth and throat: Denies headache, Denies sore throat Cardiovascular: Denies chest pain, Denies shortness of breath Respiratory: Denies cough Gastrointestinal: Reports abdominal pain (Irregular contractions) Genitourinary: Reports pelvic pain, Reports Musculoskeletal: Reports low back pain Integumentary: Denies pruritus, Denies rash Neurological: Denies numbness, Denies weakness Psychiatric: Denies anxiety, Denies depression Past Medical History Past Medical History: No Reported History, Thyroid Disorder (Hypothyroidism) Additional Past Medical History / Comment(s): chiari malformation reduction 2015 History of Any Multi-Drug Resistant Organisms: None Reported Past Surgical History: Tonsillectomy Additional Past Surgical History / Comment(s): chiari malformation, tonsillectomy, wisdom teeth Additional Past Anesthesia/Blood Transfusion Reaction / Comment(s): no blood transfusiion hx, denies anesthesia issues for self or family. Past Psychological History: No Psychological Hx Reported Smoking Status: Never smoker Past Alcohol Use History: None Reported Past Drug Use History: None Reported - Past Family History Mother Family Medical History: Diabetes Mellitus, Hypertension Medications and Allergies Home Medications Medication Instructions Recorded Confirmed Type [id number]/Iron/FA/O3/Dha/Epa/Fish 1 tab PO DAILY 02/09/21 10/12/23 History [ Multi-Dha Softgel] Allergies Allergy/AdvReac Type Severity Reaction Status Date / Time No Known Allergies Allergy Verified 10/12/23 14:32 Exam Osteopathic Statement: *. No significant issues noted on an osteopathic structural exam other than those noted in the History and Physical/Consult. HEENT: Within normal limits Heart: Regular rate and rhythm Lungs: Clear to auscultation bilaterally Abdomen: Cervix exam: 3 cm / 80%/-2 station. heart tones: 140s by Doppler Extremities: Negative Homans Assessment and Plan (1) 39 weeks gestation of Status: Acute Code(s): Z3A.39 - 39 WEEKS GESTATION OF SNOMED Code(s): 45259383 Plan: Admission for oxytocin induction of labor. Epidural anesthesia if desired. Expectant management.
[2023-10-21] MEDS ORDERED: METHYLERGONOVINE 0.2 MG/ML 1 ML AMP IM PRN ×2 (06:08→13:06)
[2023-10-21] MEDS ORDERED: OXYTOCIN 10 UNIT/ML 1 ML VIAL IM PRN ×2 (06:08→13:06)
[2023-10-21] MEDS ORDERED: LIDOCAINE 1% (10MG/ML) FOR IV START INTRADERMA PRN (06:08)
[2023-10-21] MEDS ORDERED: LIDOCAINE 0.5% (PF) 5 MG/ML (50 ML SDV) SQ PRN (06:08)
[2023-10-21] MEDS ORDERED: miSOPROStoL 200 MCG TAB PO PRN ×2 (06:08→13:06)
[2023-10-21] MEDS ORDERED: TRANEXAMIC 1,000 MG/100ML-NACL 1,000 MG in EMPTY BAG 1 BAG IV PRN ×2 (06:08→13:06)
[2023-10-21] MEDS ORDERED: TERBUTALINE 1 MG/ML VIAL SQ PRN (06:08)
[2023-10-21] MEDS ORDERED: OXYTOCIN 30 UNITS/500 ML NS 30 UNIT in SALINE 1 500ML.BAG IV SCH (06:08)
[2023-10-21] MEDS ORDERED: CARBOPROST TROMETHAMINE 250 MCG/ML 1 ML AMP IM PRN ×2 (06:08→13:06)
[2023-10-21 06:30] LABS: Basophils % (A) 0 %; Eosinophils # (A) 0.2 k/uL (0-0.7); Eosinophils % (A) 2 %; HCT 30.9 % (34.0-46.0); HGB 10.3 gm/dL (11.4-16.0); Hypochromasia Slight; Lymphocytes # (A) 2.3 k/uL (1.0-4.8); Lymphocytes % (A) 23 %; MCH 26.2 pg (25.0-35.0); MCHC 33.2 g/dL (31.0-37.0); Monocytes # (A) 0.4 k/uL (0-1.0); Monocytes % (A) 4 %; Neutrophils # (A) 6.7 k/uL (1.3-7.7); Neutrophils % (A) 68 %; Platelet Count 291 k/uL (150-450); Poikilocytosis Slight; RBC 3.91 m/uL (3.80-5.40); RDW 15.1 % (11.5-15.5); WBC 9.7 k/uL (3.8-10.6)
[2023-10-21] MEDS: LACTATED RINGERS 1,000 ML IV SCH ×2 (06:32→10:24)
[2023-10-21] MEDS ORDERED: SODIUM CHLORIDE 0.9% 250 ML BAG ONE (10:21)
[2023-10-21] MEDS ORDERED: ROPIVACAINE 5 MG/ML 30 ML VIAL ONE (10:21)
[2023-10-21] MEDS ORDERED: fentaNYL (PF) 50 MCG/ML 5 ML AMP ONE (10:21)
[2023-10-21] MEDS ORDERED: diphenhydrAMINE 50 MG/ML 1 ML VIAL IVP PRN ×2 (13:06)
[2023-10-21] MEDS ORDERED: BENZOCAINE/MENTHOL SPRAY 1 GM/SPRAY AEROSOL TOPICAL PRN (13:06)
[2023-10-21] MEDS ORDERED: SIMETHICONE 80 MG CHEWABLE PO PRN (13:06)
[2023-10-21] MEDS ORDERED: ACETAMINOPHEN TAB 325 MG TAB PO PRN (13:06)
[2023-10-21] MEDS ORDERED: diphenhydrAMINE 25 MG CAP PO PRN (13:06)
[2023-10-21] MEDS ORDERED: diphenhydrAMINE 50 MG CAP PO PRN (13:06)
[2023-10-21] MEDS ORDERED: ZOLPIDEM 5 MG TAB PO PRN (13:06)
[2023-10-21] MEDS ORDERED: HYDROCORTISONE 2.5% RECTAL CREAM 30 GM TUBE RECTAL PRN (13:06)
[2023-10-21] MEDS ORDERED: LANOLIN CREAM 5 GM TUBE TOPICAL PRN (13:06)
--- NOTE | 2023-10-21 13:17 | P.PROBDLV ---
Vaginal Delivery Note - . Vaginal Delivery Note: The patient progressed to complete dilation after oxytocin induction of labor and artificial rupture membranes with clear fluid noted. She did receive epidural anesthesia. Once reaching complete, she began pushing. She pushed for short while and 's head came to a crown. 's head delivered in a left occiput anterior lie with a nuchal posterior hand. The infant's posterior shoulders delivered first followed by the anterior shoulder and the remainder th e . Nuchal cord x 1 was reduced around the infant's head with delivery. Nose and mouth were bulb suctioned after delivery. Cord was clamped and cut and was taken to warmer for evaluation. A viable male is noted with scores of 7 at 1 minute and 9 at 5 minutes and infant weight of 8 pounds 7 ounces. Placenta delivered shortly thereafter, intact, with a three-vessel cor d. There was a small piece of membrane that was removed manually. Uterus did firm up with oxytocin and uterine massage. Inspection of the perineum revealed no perineal lacerations. Estimated blood loss is approximately 200 cc. Both mother and infant are in stable condition.
[2023-10-21] MEDS: IBUPROFEN 600 MG TAB PO PRN ×2 (13:55→19:53)
[2023-10-21 18:05] VITALS: RESP 16
[2023-10-21] MEDS: SENNOSIDES-DOCUSATE SODIUM 1 EACH TAB PO SCH (19:53)
[2023-10-22] MEDS: IBUPROFEN 600 MG TAB PO PRN (03:19)
[2023-10-22 07:58] LABS: Basophils % (A) 0 %; Eosinophils # (A) 0.2 k/uL (0-0.7); Eosinophils % (A) 1 %; Hypochromasia Moderate; Lymphocytes # (A) 2.7 k/uL (1.0-4.8); Lymphocytes % (A) 20 %; MCH 26.4 pg (25.0-35.0); MCHC 32.9 g/dL (31.0-37.0); MCV 80.2 fL (80.0-100.0); Mean Platelet Volume 8.5; Monocytes # (A) 0.6 k/uL (0-1.0); Monocytes % (A) 4 %; Neutrophils # (A) 9.6 k/uL (1.3-7.7); Neutrophils % (A) 72 %; Platelet Count 280 k/uL (150-450); Poikilocytosis Slight; RBC 2.99 m/uL (3.80-5.40); RDW 15.3 % (11.5-15.5); WBC 13.4 k/uL (3.8-10.6)
[2023-10-22 08:01] LABS: HGB 7.9 gm/dL (11.4-16.0)
[2023-10-22] MEDS: SENNOSIDES-DOCUSATE SODIUM 1 EACH TAB PO SCH (08:34)
[2023-10-22 09:03] VITALS: BP 112/68; PULSE 99; TEMP 97.4
--- NOTE | 2023-10-22 09:57 | P.DS ---
Providers Date of admission: 10/21/23 05:55 Expected date of discharge: 10/22/23 Attending physician: Negar Concepcion Primary care physician: Stated None - Discharge Diagnosis(es) (1) 39 weeks gestation of Current Visit: No Status: Acute Hospital Course: This is a 27-year-old female 3 para 1 at 39-0/7 weeks who presented for induction of labor. She underwent oxytocin induction of labor and delivered vaginally a viable male with scores of 7 at 1 minute and 9 at 5 minutes and infant weight of 8 pounds 7 ounces. Her course has been uncomplicated. Lochia is decreasing. Her pain is well-controlled. She is breast-feeding. Vital signs are stable. Abdomen is soft with fundus firm and nontender. Extremities show negative Homans. Impression is status post vaginal delivery day #1. Plan is to discharge home today. Routine instructions are given. She declines the need for any pain med ication at home. She would like a prescription for a breast pump. She will continue taking her vitamins and take some extra iron due to chronic anemia with acute blood loss anemia. She is advised to call the office if she has any further questions or concerns prior to her appointment time. Procedures: Oxytocin induction of labor Spontaneous vaginal delivery of a viable male infant on 10/21/2023 Patient Condition at Discharge: Stable Plan - Discharge Summary New Discharge Prescriptions: No Action San028/Iron/FA/O3/Dha/Epa/Fish [ Multi-Dha Softgel] 1 tab PO DAILY Discharge Medication List [id number]/Iron/FA/O3/Dha/Epa/Fish [ Multi-Dha Softgel] 1 tab PO DAILY 02/09/21 [History] Follow up Appointment(s)/Referral(s): Negar Concepcion DO [Doctor of Osteopathic Medicine] - 6 Weeks (PP 12/01/23 @11:30Am) Activity/Diet/Wound Care/Special Instructions: Instructions 1. Do not begin any exercise program for 3 weeks. 2. Do not resume sexual relations for 3 weeks or longer if uncomfortable. 3. You may take tub baths or showers at any time. 4. You may use tampons if desired after 3 weeks. 5. Keep the area of episiotomy (stitches) clean and dry. 6. If you are not nursing, wear a good fitting, supportive bra during the day and limit fluid intake for at least 1 week to prevent breast engorgement. 7. Call the office, [phone], within the next week to make appointment for your 6 week checkup if it has not already been made. 8. Report any of the following occurrences to the doctor promptly: a. Heavy, excessive bleeding b. Chills, fever c. Burning or frequency of urination d. Pain or redness and breasts if nursing e. Increasing pain or swelling in episiotomy (stitches). In addition to the above instructions, the following additional should be followed: 1. No heavy lifting or straining (exercising) until after 6 week checkup. 2. Keep abdominal incision clean and dry: You may wear a dressing if more comfortable. 3. Make office appointment for 10 days after going home or as instructed by her doctor. Discharge Disposition: HOME SELF-CARE
== END 2023-10-22 13:50 | disposition home or self-care (01) | DRG 806 ==
LOC: 4FBP 05:55
PROVIDERS: ADMIT Obstetrics & Gynecology; ATTEND Obstetrics & Gynecology
PROC: 10E0XZZ Delivery of Products of Conception, External Approach (ICD-10-PCS; principal; 2023-10-21)
PROC: 10907ZC Drainage of Amniotic Fluid, Therapeutic from Products of Conception, Via Natural or Artificial Opening (ICD-10-PCS; 2023-10-21)
PROC: 3E033VJ Introduction of Other Hormone into Peripheral Vein, Percutaneous Approach (ICD-10-PCS; 2023-10-21)
PROC: 4A0HXCZ Measurement of Products of Conception, Cardiac Rate, External Approach (ICD-10-PCS; 2023-10-21)
DX: O41.03X0 Oligohydramnios, third trimester, not applicable or unspecified (principal); D62 Acute posthemorrhagic anemia; Z37.0 Single live birth; O36.8130 Decreased fetal movements, third trimester, not applicable or unspecified; O69.81X0 Labor and delivery complicated by cord around neck, without compression, not applicable or unspecified; O99.02 Anemia complicating childbirth; Z3A.39 39 weeks gestation of pregnancy; Z82.49 Family history of ischemic heart disease and other diseases of the circulatory system
CPT/HCPCS: 85025; 86850; 86900; 86901

== ENCOUNTER → 2024-12-19 | Outpatient (CLI) | payer MEDICAID ==
--- NOTE | 2024-12-19 07:48 | US ---
EXAMINATION TYPE: US liver DATE OF EXAM: 12/19/2024 COMPARISON: NONE CLINICAL INDICATION: Female, 29 years old with history of R74.01 ELEVATION OF LEVELS OF LIVER TRANSAM INASE L; elevated liver enzymes. TECHNIQUE: Grayscale and color Doppler imaging of the right upper quadrant was performed. FINDINGS: EXAM MEASUREMENTS: Liver Length: 15.9 cm Gallbladder Wall: .2 cm CBD: .3 cm Right Kidney: 10.5 x 4.2 x 5.0 cm TRAINING INSTRUCTOR NOTES: Pancreas: Obscured by bowel gas Liver: Increased attenuation Gallbladder: No stones seen Evidence for sonographic Benitez's sign: No CBD: wnl Right Kidney: wnl The pancreas is obscured by overlying bowel gas. Liver demonstrates mild diffusely increased echogeni city. Noncirrhotic morphology. No gallstones, wall thickening or surrounding fluid. Negative sonograp hic Benitez's sign. Common bile duct is within normal limits. Right kidney demonstrates no solid mass, shadowing calculus, or hydronephrosis. IMPRESSION: 1. No ultrasound evidence for acute process. 2. Mild hepatic steatosis. [facility], , 12/19/2024 7:45 AM
== END | disposition home or self-care (01) ==
LOC: RADUSWWP 07:17
PROVIDERS: ATTEND Family Medicine
DX: K76.0 Fatty (change of) liver, not elsewhere classified (principal); R74.01 Elevation of levels of liver transaminase levels
CPT/HCPCS: 76705